=== PATIENT | female | born 1945 | race Caucasian/White ===

== ENCOUNTER 2020-07-30 16:09 | Inpatient (IN) | payer MEDICARE ==
[~2020-07-30] VITALS: Ht 154.9 cm; Wt 50.2 kg
[2020-07-30 20:30] VITALS: BP 99/79
[2020-07-30] MEDS ORDERED: ACETAMINOPHEN TAB 650MG DOSE (2X325MG) PO PRN (20:30)
--- NOTE | 2020-07-30 21:03 | HPEPDOC ---
General Date of Admission 07/30/20 Date of Service: Jul 30, 2020 Chief Complaint The patient is a 75-year-old female admitted with a reason for visit of Hypoxia. Source: Patient Exam Limitations: No limitations Severity: Moderate History of Present Illness Patient 75 years old female with past mental history of chronic kidney diseases, diastolic CHF, hypertension, hypothyroidism was transferred from [facility] with shortness of breath. Patient was admitted to [place] with sepsis secondary to pneumonia. Patient was found to have left lower lobe pneumonia with hypoxia, patient received treatment with ceftriaxone and azithromycin initially with some improvement. However on 07/27 patient developed increased shortness of breath, CT scan was done and showed a small left-sided pleural effusion with extensive parenchymal diseases in the left lower lobe with confluent left hilar mass around 4 cm consistent with postobstructive pneumonitis. Follow-up CT on 07/30/20 showed complete opacification of the left hemithorax secondary to left hilar mass causing complete collapse to the left lung with associated pleural effusion and volume loss. Underlying mediastinal and hilar adenopathy was noted as well,. 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 Levaquin started. Patient was transferred to [facility] for possible bronchoscopy. Case was discussed with Dr. Dixon. Also patient was found to have UTI, urine culture was positive for Trichomonas specious. Patient received a few doses with Flagyl 500 mg by mouth twice a day. Echo was done on 07/27 and showed ejection fraction of 55% with moderate pericardial effusion. Home Medications Scheduled Aspirin (Aspirin) 81 Mg Tab.chew, 81 MG PO DAILY, (Reported) Levothyroxine Sodium (Levothyroxine Sodium) 75 Mcg Tablet, 75 MCG PO QAM, (Reported) Vitamin B Complex/Folic Acid (B-Complex Tablet) 0.4 Mg Tablet, 1 TAB PO DAILY, (Reported) Allergies Coded Allergies: No Known Allergies (Verified Allergy, Unknown, 07/30/20) Past Medical History Medical History Hypertension, hyperlipidemia, hypothyroidism Social History * Smoker: current smoker Alcohol: Denies Drugs: denies A-FIB/CHADSVASC A-FIB History Current/History of A-Fib/PAF?: No Current PO Anticoag Therapy: No Review of Systems Constitutional: Denies: Chills, Fever Eyes: Denies: Pain ENT: Denies: Head Aches Skin: Denies: Rash, Lesions Pulmonary: Reports: Dyspnea Cardiovascular: Denies: Chest Pain, Palpitations Gastrointestinal: Denies: Nausea Genitourinary: Denies: Dysuria Hematologic: Denies: Bruising, Bleeding Excessively Endocrine: Denies: Polydipsia Musculoskeletal: Denies: Neck Pain Neurological: Denies: Weakness Psych: Reports: Mood Normal Physical Examination General Exam: Positive: Cooperative ENT Exam: Positive: Atraumatic Neck Exam: Positive: Supple; Negative: JVD Chest Exam: Positive: Diminished Heart Exam: Positive: Rate Normal Telemetry: Positive: No significant arrhythmia Abdomen Exam: Positive: Normal bowel sounds Extremity Exam: Negative: Clubbing, Cyanosis Skin Exam: Positive: Nl turgor and temperature Neuro Exam: Positive: Strength at 5/5 X4 ext Psych Exam: Positive: Mental status NL Vital Signs [id number] Assessment/Plan Patient 75 years old female with past mental history of chronic kidney diseases, diastolic CHF, hypertension, hypothyroidism was transferred from [facility] with shortness of breath. Patient was admitted to [place] with sepsis secondary to pneumonia. Patient was found to have left lower lobe pneumonia with hypoxia, patient received treatment with ceftriaxone and azithromycin initially with some improvement. However on 07/27 patient developed increased shortness of breath, CT scan was done and showed a small left-sided pleural effusion with ex tensive parenchymal diseases in the left lower lobe with confluent left hilar mass around 4 cm consistent with postobstructive pneumonitis. Follow-up CT on 07/30/20 showed complete opacification of the left hemithorax secondary to left hilar mass causing complete collapse to the left lung with associated pleural effusion and volume loss. Underlying mediastinal and hilar adenopathy was noted as well,. 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 Levaquin started. Patient was transferred to [facility] for possible bronchoscopy. Case was discussed with Dr. Dixon. Also patient was found to have UTI, urine culture was positive for Trichomonas specious. Patient received a few doses with Flagyl 500 mg by mouth twice a day. 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 Sputum culture positive for Xanthonomas maltophilia Levaquin IV CT chest showed a confluent left hilar mass consistent with postobstructive pneumonitis. Patient has a history of smoking for many years There is concern for malignancy Appreciate/agree with instrument adjuster consult (2) Hypothyroidism Status: Chronic Problem Text: Continue levothyroxine (3) Hypertension Status: Chronic Problem Text: Continue home cardioprotective medications (4) UTI (urinary tract infection) Status: Acute Problem Text: Patient was admitted with pyuria UA was positive for Trichomonas Metronidazole 2 g once (5) History of GI bleed Status: Acute Problem Text: During hospital stay in [facility] patient developed acute anemia. EGD was done patient was found to have a bleeding duodenal ulcer. Patient received treatment with IV PPI and Carafate Continue PPI and Carafate Plan / VTE VTE Prophylaxis Ordered?: Yes ERNST CORREIA DO Jul 30, 2020 21:03
[2020-07-30] MEDS ORDERED: metroNIDAZOLE (FLAGYL) 500MG TABLET PO ONE (21:15)
[2020-07-30] MEDS ORDERED: LEVO75TA4 PO (21:23)
[2020-07-30] MEDS ORDERED: B-COTAB10 PO (21:23)
[2020-07-30] MEDS ORDERED: ASPI81CH33 PO (21:23)
[2020-07-30 21:40] LABS: HEMATOCRIT 33.1 % (36.0-47.0); HEMOGLOBIN 10.7 g/dl (12.0-15.5); MEAN CORPUSCULAR HEMOGLOBIN 30.1 pg (27.0-33.0); MEAN CORPUSCULAR HGB CONC 32.3 g/dl (32.0-36.5); MEAN CORPUSCULAR VOLUME 93.2 fl (80.0-96.0); PLATELET COUNT, AUTOMATED 396 10^3/uL (150-450); RED BLOOD COUNT 3.55 10^6/uL (4.00-5.40)
[2020-07-30 22:17] LABS: ALBUMIN 1.7 GM/DL (3.2-5.2); ALT/SGPT 20 U/L (12-78); BILIRUBIN,TOTAL 0.2 MG/DL (0.2-1.0); BLOOD UREA NITROGEN 11 MG/DL (7-18); CALCIUM LEVEL 8.1 MG/DL (8.8-10.2); CARBON DIOXIDE LEVEL 21 MEQ/L (21-32); CHLORIDE LEVEL 105 MEQ/L (98-107); CREATININE FOR GFR 0.65 MG/DL (0.55-1.30); GLOMERULAR FILTRATION RATE > 60.0 (>39); GLUCOSE, FASTING 109 MG/DL (70-100); POTASSIUM SERUM 3.5 MEQ/L (3.5-5.1); SODIUM LEVEL 134 MEQ/L (136-145); TOTAL PROTEIN 4.9 GM/DL (6.4-8.2)
[2020-07-30] MEDS: HEPARIN SOD (PORCINE) 5000UNITS/ML 1ML VIAL/SYRINGE SC SCH (23:54)
[2020-07-30] MEDS: LevoFLOXacin IV 750 MG in IV 1 EA IV SCH (23:55)
[2020-07-31] VITALS: BP 102/52
[2020-07-31] MEDS: IPRATROPIUM 0.5MG/ALBUTEROL 2.5MG INH SOL UD 3ML (DUONEB) NEB SCH ×4 (02:00→20:03)
[2020-07-31] MEDS ORDERED: ALBUTEROL SULFATE 2.5 MG/0.5 ML INH NEB SOLN NEB PRN (02:00)
[2020-07-31 04:00] VITALS: BP 100/64
[2020-07-31 06:01] LABS: HEMATOCRIT 33.9 % (36.0-47.0); HEMOGLOBIN 10.6 g/dl (12.0-15.5); MEAN CORPUSCULAR HEMOGLOBIN 30.8 pg (27.0-33.0); MEAN CORPUSCULAR HGB CONC 31.3 g/dl (32.0-36.5); MEAN CORPUSCULAR VOLUME 98.5 fl (80.0-96.0); PLATELET COUNT, AUTOMATED 358 10^3/uL (150-450); RED BLOOD COUNT 3.44 10^6/uL (4.00-5.40); WHITE BLOOD COUNT 12.9 10^3/uL (4.0-10.0)
[2020-07-31 06:42] LABS: ALBUMIN 1.4 GM/DL (3.2-5.2); ALT/SGPT 16 U/L (12-78); BILIRUBIN,TOTAL 0.2 MG/DL (0.2-1.0); BLOOD UREA NITROGEN 10 MG/DL (7-18); CARBON DIOXIDE LEVEL 17 MEQ/L (21-32); CHLORIDE LEVEL 106 MEQ/L (98-107); CREATININE FOR GFR 0.71 MG/DL (0.55-1.30); GLOMERULAR FILTRATION RATE > 60.0 (>39); GLUCOSE, FASTING 79 MG/DL (70-100); MAGNESIUM LEVEL 1.7 MG/DL (1.8-2.4); POTASSIUM SERUM 3.2 MEQ/L (3.5-5.1); SODIUM LEVEL 133 MEQ/L (136-145); TOTAL PROTEIN 5.1 GM/DL (6.4-8.2)
[2020-07-31] MEDS: LEVOTHYROXINE 75MCG TABLET (0.075MG) PO SCH (06:42)
[2020-07-31 08:00] VITALS: BP 92/58
[2020-07-31] MEDS: SUCRALFATE 1 GM TAB PO SCH ×2 (09:10→17:43)
[2020-07-31] MEDS: OMEPRAZOLE 20 MG CAP PO SCH ×2 (09:10→21:51)
[2020-07-31] MEDS: predniSONE 20 MG TAB PO SCH (09:11)
[2020-07-31] MEDS: ASPIRIN 81 MG CHEW TABLET PO SCH (09:11)
[2020-07-31] MEDS: HEPARIN SOD (PORCINE) 5000UNITS/ML 1ML VIAL/SYRINGE SC SCH ×2 (09:11→21:52)
--- NOTE | 2020-07-31 10:53 | IPNPDOC ---
Text Note Date of Service The patient was seen on 07/31/20. NOTE Subjective: No any acute events overnight. Patient denied fever, chills, nausea, vomiting, diarrhea or dysuria. Objective: GENERAL APPEARANCE: NAD HEENT: no scleral icterus, no JVD, EOMI CARDIOVASCULAR: S1S2 LUNGS: Diminished lung sounds bilaterally ABDOMEN: soft & not tender w palpitation MUSCULOSKELETAL: no cyanosis, no swelling INTEGUMENT: no generalized palor NEUROLOGICAL: cranial nerve function from 2-12 intact intact, follows commands, speech not dysarthric Assessment/Plan Patient 75 years old female with past mental history of chronic kidney diseases, diastolic CHF, hypertension, hypothyroidism was transferred from [facility] with shortness of breath. Patient was admitted to [place] with sepsis secondary to pneumonia. Patient was found to have left lower lobe pneumonia with hypoxia, patient received treatment with ceftriaxone and azithromycin initially with some improvement. However on 07/27 patient developed increased shortness of breath, CT scan was done and showed a small left-sided pleural effusion with extensive parenchymal diseases in the left lower lobe with confluent left hilar mass around 4 cm consistent with postobstructive pneumonitis. Follow-up CT on 07/30/20 showed complete opacification of the left hemithorax secondary to left hilar mass causing complete collapse to the left lung with associated pleural effusion and volume loss. Underlying mediastinal and hilar adenopathy was noted as well,. 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 Levaquin started. Patient was transferred to [facility] for possible bronchoscopy. Case was discussed with Dr. Dixon. Also patient was found to have UTI, urine culture was positive for Trichomonas specious. Patient received a few doses with Flagyl 500 mg by mouth twice a day. 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 Sputum culture positive for Xanthonomas maltophilia Continue Levaquin IV CT chest showed a confluent left hilar mass consistent with postobstructive pneumonitis. Patient has a history of smoking for many years There is concern for malignancy Appreciate/agree with data analyst etl developer consult (2) Hypothyroidism Continue levothyroxine (3) Hypertension Continue home cardioprotective medications (4) UTI (urinary tract infection) Patient was admitted with pyuria UA was positive for Trichomonas Metronidazole 2 g once (5) History of GI bleed During hospital stay in [facility] patient developed acute anemia. EGD was done patient was found to have a bleeding duodenal ulcer. Patient received treatment with IV PPI and Carafate Continue PPI and Carafate Hemoglobin stable VS,Fishbone, I+O VS, Fishbone, I+O Laboratory Tests 07/30/20 21:29 07/31/20 05:24 Vital Signs Date Time Temp Pulse Resp B/P (MAP) Pulse Ox O2 Delivery O2 Flow Rate FiO2 07/31/20 08:00 97.6 84 17 92/58 (69) 93 Nasal Cannula 2.0 I&O- Last 24 Hours up to 6 AM 07/31/20 06:00 Intake Total 0 ml Output Total 250 ml Balance -250 ml ERNST CORREIA DO Jul 31, 2020 10:53
[2020-07-31] MEDS ORDERED: POTASSIUM CHLORIDE 10 MEQ SR TABLET PO ONE (11:00)
[2020-07-31] MEDS ORDERED: ISOVUE-370 76% 100ML VIAL As Ordered ONE (11:03)
--- NOTE | 2020-07-31 11:49 | REP ---
INDICATION: LL PNA COMPARISON: None TECHNIQUE: Axial contrast enhanced images from the thoracic inlet to the upper abdomen with coronal and sagittal reformations using 75 ml Isovue 370 intravenous contrast material. This CT examination was performed using the following dose reduction techniques: Automated exposure control, adjustment of mA and/or kv according to the patient's size, and use of iterative reconstruction technique. FINDINGS: There is obstruction at the level of the left main bronchus with suspected perihilar mass and postobstructive collapse to the left lung with a moderate pleural effusion and mediastinal adenopathy. As example, pre-vascular lymph nodes measure up to 2.2 cm. Right lung demonstrates underlying chronic fibrosis and emphysematous disease with scattered ground-glass opacities and small right pleural effusion. Atherosclerotic changes to the thoracic aorta noted without aneurysm or dissection. Atherosclerotic changes to the coronary arteries are identified without cardiomegaly or pericardial effusion. Musculoskeletal structures demonstrate age-related degenerative changes and chronic vertebral plana at T7. IMPRESSION: Suspected left hilar mass causing obstructive collapse to the left lung with moderate left effusion and associated mediastinal adenopathy. <Electronically signed by Roman Gilman > 07/31/20 [id number]
[2020-07-31 12:00] VITALS: BP 90/58
--- NOTE | 2020-07-31 12:08 | CR ---
CONSULTATION DATE: 07/31/2020 ATTENDING PHYSICIAN: Dr. Parson. REASON FOR CONSULTATION: Abnormal CT scan. HISTORY OF PRESENT ILLNESS: Ms. Rodas is a delightfully pleasant 75-year-old female who smoked much of her adult life. She says other than some hypertension and hypothyroidism she has been otherwise healthy and has never been hospitalized for anything other than childbirth. She recently was felt to have a pneumonia. Further workup revealed that she had a mass. She then had whiteout of her left chest. She was transferred here for further care and consideration for bronchoscopy. Unfortunately at the moment, I have no capabilities to view the discs that were sent with her. She says she is feeling fairly comfortable. Denies changes in appetite. Denies fevers or chest pain. Says she has been coughing up some sputum but really has not looked at it to be honest. No other systemic complaints. ALLERGIES: Listed as none. CURRENT MEDICATIONS: 1. Prilosec. 2. Prednisone. 3. Aspirin. 4. Carafate. 5. Synthroid. 6. Albuterol nebs. 7. Levaquin. 8. Subcu heparin. 9. Acetaminophen. PAST MEDICAL HISTORY: 1. Hypertension. 2. Hypothyroidism. SOCIAL HISTORY: Lives at home with family nearby. Continues to smoke. No obvious alcohol. FAMILY HISTORY: Noncontributory from a pulmonary standpoint. REVIEW OF SYSTEMS: As per the HPI. Otherwise constitutional negative for any recent fevers or chills. HEENT unremarkable for double vision. Pulmonary as per HPI. Cardiac unremarkable for angina. GI unremarkable for nausea or vomiting. unremarkable for dysuria or urgency. Neurologic unremarkable for seizure or strokes. Endocrine significant for hypothyroidism. Hematological unremarkable for bruising or bleeding. Dermatologic unremarkable for any rashes or psoriasis. Musculoskeletal unremarkable for any new arthralgias or myalgias. Immunologic and allergic unremarkable. Psychiatric unremarkable. PHYSICAL EXAMINATION: General: Pleasant, well-nourished, well-developed female who appears her stated age. Vital signs: Blood pressure 92/58, heart rate in the 80s with frequent ectopy, respiratory rate around 16-18 and unlabored, currently saturating 91-93% on 2 liters nasal cannula. HEENT: Otherwise generally normocephalic/atraumatic. Pupils reactive. Neck is supple, consistent with age. Trachea is in the midline. Membranes are moist. Airway is class II. Chest: Mild kyphosis. There is dullness to percussion over the entire left hemithorax. There is some egophony at the left apex posteriorly but absence of breath sounds over the lower two-thirds of the left hemithorax. Right chest is generally clear with some occasionally rhonchus and a faint end-expiratory squeak especially in the mid zone. Cardiac: Distant with frequent ectopy. Peripheral pulses palpable. No obvious edema. Abdomen: Soft, nontender with active bowel sounds. No __, ischemia or mass. Extremities: No cyanosis or clubbing. Neurologic: She is awake, alert, appropriate. Psychiatric: General good mood and affect. . IMAGING: Currently imaging is unavailable to me. LABORATORY DATA: Available laboratories: White blood cell count 12.9, hemoglobin 10.6, platelet count 358,000. Sodium 133, potassium 3.2, chloride 106, CO2 17, BUN 10, creatinine 0.71, glucose 79. IMPRESSION: 1. Abnormal chest x-ray and CT scan with reported mass with adenopathy and progressive atelectasis. 2. Longstanding tobacco abuse, cannot rule out significant underlying obstructive disease. 3. Nicotine abuse. 4. Reported pericardial effusion, chronic. RECOMMENDATIONS: At this point, I need to view her images. I am told that I will have access to a disc drive here shortly. If not, we will have to repeat her scan. I may be able to have her disc loaded into the PACS system in Radiology as well for viewing. I discussed with her the need most likely for fiberoptic bronchoscopy, but in the interim, we will get sputum for cytologies and increase her pulmonary toilet. It may be conceivable that she had progression due to mucus plugging, but I will know better once I see the images. I am in agreement with her other medications. Risks and benefits of bronchoscopy were discussed, and likely I will do her in the main OR. Will proceed as outlined above. Further recommendation will be in the progress record as new information becomes available. YENIFER
[2020-07-31 16:00] VITALS: BP 94/52
[2020-07-31] MEDS ORDERED: PILL CUTTER 1 EACH XX PRN (16:00)
[2020-07-31] MEDS: MAGNESIUM GLUCONATE 500 MG TAB PO SCH (17:43)
[2020-07-31 20:00] VITALS: BP 108/60
[2020-07-31] MEDS: LevoFLOXacin IV 750 MG in IV 1 EA IV SCH (21:52)
[2020-08-01] VITALS: BP 113/59
[2020-08-01] MEDS: IPRATROPIUM 0.5MG/ALBUTEROL 2.5MG INH SOL UD 3ML (DUONEB) NEB SCH ×4 (02:00→19:54)
[2020-08-01 04:00] VITALS: BP 105/58
[2020-08-01] MEDS: LEVOTHYROXINE 75MCG TABLET (0.075MG) PO SCH (05:02)
[2020-08-01 05:39] LABS: BASO % 0.1 % (0.0-1.0); EOS % 0.1 % (0.0-3.0); HEMATOCRIT 27.8 % (36.0-47.0); HEMOGLOBIN 9.5 g/dl (12.0-15.5); LYMPH # 0.7 10^3/uL (1.5-5.0); LYMPH % 3.7 % (24.0-44.0); MEAN CORPUSCULAR HEMOGLOBIN 31.5 pg (27.0-33.0); MEAN CORPUSCULAR HGB CONC 34.2 g/dl (32.0-36.5); MEAN CORPUSCULAR VOLUME 92.1 fl (80.0-96.0); MONO # 0.8 10^3/uL (0.0-0.8); MONO % 4.4 % (0.0-5.0); NEUTROPHILS % 90.9 % (36.0-66.0); PLATELET COUNT, AUTOMATED 433 10^3/uL (150-450); RED BLOOD COUNT 3.02 10^6/uL (4.00-5.40); WHITE BLOOD COUNT 17.6 10^3/uL (4.0-10.0)
[2020-08-01 06:00] LABS: BLOOD UREA NITROGEN 7 MG/DL (7-18); CALCIUM LEVEL 7.9 MG/DL (8.8-10.2); CARBON DIOXIDE LEVEL 22 MEQ/L (21-32); CHLORIDE LEVEL 106 MEQ/L (98-107); CREATININE FOR GFR 0.78 MG/DL (0.55-1.30); GLOMERULAR FILTRATION RATE > 60.0 (>39); GLUCOSE, FASTING 86 MG/DL (70-100); MAGNESIUM LEVEL 1.5 MG/DL (1.8-2.4); POTASSIUM SERUM 3.5 MEQ/L (3.5-5.1); SODIUM LEVEL 136 MEQ/L (136-145)
[2020-08-01 08:00] VITALS: BP 109/56
[2020-08-01] MEDS: predniSONE 20 MG TAB PO SCH (09:06)
[2020-08-01] MEDS: HEPARIN SOD (PORCINE) 5000UNITS/ML 1ML VIAL/SYRINGE SC SCH ×2 (09:06→21:11)
[2020-08-01] MEDS: SUCRALFATE 1 GM TAB PO SCH ×2 (09:06→17:39)
[2020-08-01] MEDS: ASPIRIN 81 MG CHEW TABLET PO SCH (09:07)
[2020-08-01] MEDS: OMEPRAZOLE 20 MG CAP PO SCH ×2 (09:07→21:11)
[2020-08-01] MEDS: MAGNESIUM GLUCONATE 500 MG TAB PO SCH (09:07)
--- NOTE | 2020-08-01 11:09 | IPN ---
PULMONARY PROGRESS NOTE DATE: 08/01/2020 SUBJECTIVE: I attended to Savannah Rodas here in the Progressive Care Unit. Patient was examined, chart reviewed and I spoke with the nurses at the bedside. Reviewed her CT scan and discussed it with her. She has complete cut off of the left main stem bronchus and very significant hilar mediastinal adenopathy. Risks and benefits of bronchoscopy were discussed with her and informed consent was obtained today for a procedure planned for tomorrow under general anesthesia. T-max overnight 97.9, blood pressure 105-113, heart rate in the 80s with a sinus mechanism, respiratory rate in the teens without accessory muscle use, currently saturating 88-90% on 2 liters nasal cannula. White blood cell count 17.6, hemoglobin 9.5, platelet count 433,000, 91% segmented neutrophils, no bands. Sodium 136, K 3.5, chloride 6, CO2 22, BUN 7, creatinine 0.78. Coags are pending. PHYSICAL EXAM: On exam she is awake, alert and appropriate. HEENT: Pupils react, sclerae clear. Neck: Trachea is midline. Chest: Shows absence of breath sounds over almost the entire left hemithorax except for some egophony at the apex. Right chest is clear. Cardiac: Regular with no gallop. Peripheral pulses palpable. No extremity edema. Abdomen: Soft, nontender with active bowel sounds, no organomegaly or masses. Extremities: Without cyanosis or clubbing. Neurologically: She is awake, alert and appropriate. Psychiatric: Normal mood and affect. IMAGING: CT scan as outlined above. IMPRESSION: 1. Abnormal CT scan with obstructing lesions in the left chest. 2. Long standing tobacco history with suspected obstructive lung disease. 3. Hypoxemia on the basis of the above. RECOMMENDATIONS AND PLAN: At this point we will proceed as planned with bronchoscopy tomorrow. Risks and benefits were discussed and consent was obtained and signed. At this point we will check coags although that will not preclude us proceeding unless they are markedly abnromal which I do not expect. We await the outcome of the above. In the interim we will continue our current therapy for post-obstructive changes. We await the outcome of the above.
[2020-08-01 12:00] VITALS: BP 102/56
[2020-08-01 16:00] VITALS: BP 107/63
--- NOTE | 2020-08-01 16:50 | IPNPDOC ---
Date Seen The patient was seen on 08/01/20. Progress Note SUBJECTIVE: WBC worsened this AM, on levofloxacin. Bronchoscopy planned for AM 08/01/20, pulmonary consulted. No any acute events overnight. Patient denied fever, chills, nausea, vomiting, diarrhea or dysuria. OBJECTIVE: PHYSICAL EXAM: VS: Please see below GENERAL APPEARANCE: NAD HEENT: no scleral icterus, no JVD, EOMI CARDIOVASCULAR: S1S2 LUNGS: Diminished lung sounds bilaterally ABDOMEN: soft & not tender w palpitation MUSCULOSKELETAL: no cyanosis, no swelling INTEGUMENT: no generalized palor NEUROLOGICAL: cranial nerve function from 2-12 intact intact, follows commands, speech not dysarthric LABS: Please see below MICRO: BCx pending IMAGING: CT chest: Suspected left hilar mass causing obstructive collapse to the left lung with moderate left effusion and associated mediastinal adenopathy. ASSESSMENT: Patient 75 years old female with past mental history of chronic kidney diseases, diastolic CHF, hypertension, hypothyroidism was transferred from [facility] with shortness of breath. Patient was admitted to [place] with sepsis secondary to pneumonia. Patient was found to have left lower lobe pneumonia with hypoxia, patient received treatment with ceftriaxone and azithromycin initially with some improvement. However on 07/27 patient developed increased shortness of breath, CT scan was done and showed a small left-sided pleural effusion with extensive parenchymal diseases in the left lower lobe with confluent left hilar mass around 4 cm consistent with postobstructive pneumonitis. Follow-up CT on 07/30/20 showed complete opacification of the left hemithorax secondary to left hilar mass causing complete collapse to the left lung with associated pleural effusion and volume loss. Underlying mediastinal and hilar adenopathy was noted as well. 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 Levaquin started. Patient was transferred to [facility] for bronchoscopy. Case was discussed with Dr. Dixon. Also patient was found to have UTI, urine culture was positive for Trichomonas specious. Patient received a few doses with Flagyl 500 mg by mouth twice a day. Echo was done on 07/27 and showed ejection fraction of 55% with moderate pericardial effusion. 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 LL pneumonia with collapsed lung. -Sputum culture positive for Xanthonomas maltophilia -WBC worsened to 17K despite tx with levofloxacin -Currently on 2 L NC but desaturates to 80's with ambulation. RA is baseline -Pulmonology consulted -Bronchoscopy in AM on 08/02/20 -C/w levofloxacin for now, if WBC worsens, broaden with cefepime (2) Hypothyroidism -C/w levothyroxine (3) Hypertension -C/w cardioprotective medications (4) Trichomonas UTI -WBC worsened -S/p flagyl treatment (5) History of GI bleed 2/2 to duodenal ulcer -During hospital stay in [facility] patient developed acute anemia. -EGD was done patient was found to have a bleeding duodenal ulcer. -Continue PPI and Carafate -Hemoglobin stable -Daily CBC (6) GI px -PPI (7) DVT px -Recent GI bleed -HOlding AC, SCD and teds DISPOSITION: Bronchoscopy in AM. PT/OT. Plan is discharge home when medically improved. VS, I&O, 24H, Fishbone Vital Signs/I&O Vital Signs Date Time Temp Pulse Resp B/P (MAP) Pulse Ox O2 Delivery O2 Flow Rate FiO2 08/01/20 12:00 96.6 83 18 102/56 (71) 94 Nasal Cannula 2.0 I&O- Last 24 Hours up to 6 AM 08/01/20 06:00 Intake Total 1050 ml Output Total 0 ml Balance 1050 ml Laboratory Data 24H LABS Laboratory Tests 2 08/01/20 05:20: Immature Granulocyte % (Auto) 0.8, Neutrophils (%) (Auto) 90.9H, Lymphocytes (%) (Auto) 3.7L, Monocytes (%) (Auto) 4.4, Eosinophils (%) (Auto) 0.1, Basophils (%) (Auto) 0.1, Neutrophils # (Auto) 16.0H, Lymphocytes # (Auto) 0.7L, Monocytes # (Auto) 0.8, Eosinophils # (Auto) 0.0, Basophils # (Auto) 0.0, Nucleated Red Blood Cells % (auto) 0.0, Anion Gap 8, Glomerular Filtration Rate > 60.0, Calcium Level 7.9L, Magnesium Level 1.5L 08/01/20 10:01: Methicillin-Resist S.aureus DNA PCR NOT DETECTED 08/01/20 10:56: Coronavirus (COVID-19)(PCR) NEGATIVE CBC/BMP Laboratory Tests 08/01/20 05:20 Microbiology Microbiology 08/01/20 Blood Culture, Received Pending 08/01/20 Blood Culture, Received Pending Current Medications Current Medications Medications (Trade) Dose Ordered Sig/Tato Route PRN Reason Start Time Stop Time Status Last Admin Dose Admin Acetaminophen (Tylenol Tab) 650 mg Q4H PRN PO PAIN OR FEVER 07/30/20 20:30 Albuterol Sulfate (Proventil Neb) 2.5 mg Q4HP PRN NEB SHORTNESS OF BREATH 07/31/20 02:00 Albuterol/ Ipratropium (Duoneb (Ipr 0.5mg/Alb 2.5mg)) 3 ml RQ6H NEB 07/31/20 02:00 08/01/20 14:53 Aspirin (Aspirin Chewable) 81 mg DAILY PO 07/31/20 09:00 08/01/20 09:07 Heparin Sodium (Porcine) (Heparin) 5,000 units Q12H SC 07/30/20 21:00 08/01/20 09:06 Home Med (Med Rec Complete!) ASDIRECTED XX 07/30/20 21:30 07/30/20 22:04 DC Levofloxacin 750 mg/IV Miscellaneous Supplies 150 ml @ 100 mls/hr Q24H IV 07/30/20 22:00 07/31/20 21:52 Levothyroxine Sodium (Synthroid) 75 mcg DAILY@0600 PO 07/31/20 06:00 08/01/20 05:02 Magnesium Gluconate (Magnesium Gluconate) 250 mg DAILY PO 07/31/20 16:00 08/01/20 09:07 Omeprazole (PriLOSEC) 40 mg BID PO 07/31/20 09:00 08/01/20 09:07 Prednisone (Deltasone) 40 mg DAILY PO 07/31/20 09:00 08/01/20 09:06 Sucralfate (Carafate) 1 gm BID@0800,1800 PO 07/31/20 08:00 08/01/20 09:06 Allergies Coded Allergies: No Known Allergies (Verified Allergy, Unknown, 07/30/20) Nevaeh Sweeney MD Aug 01, 2020 16:50
[2020-08-01] MEDS: CEFEPIME HCL 2 GM in D5W MINI-BAG PLUS 50 ML IV SCH (17:39)
[2020-08-01 20:00] VITALS: BP 105/51
[2020-08-01] MEDS: LevoFLOXacin IV 750 MG in IV 1 EA IV SCH (21:11)
[2020-08-02] VITALS (10 sets, daily range): BP systolic 97–137; BP diastolic 53–59
[2020-08-02] MEDS: IPRATROPIUM 0.5MG/ALBUTEROL 2.5MG INH SOL UD 3ML (DUONEB) NEB SCH ×4 (01:51→19:18)
[2020-08-02 05:16] LABS: BASO % 0.1 % (0.0-1.0); HEMATOCRIT 28.9 % (36.0-47.0); HEMOGLOBIN 9.2 g/dl (12.0-15.5); LYMPH # 0.7 10^3/uL (1.5-5.0); LYMPH % 5.3 % (24.0-44.0); MEAN CORPUSCULAR HEMOGLOBIN 30.3 pg (27.0-33.0); MEAN CORPUSCULAR HGB CONC 31.8 g/dl (32.0-36.5); MEAN CORPUSCULAR VOLUME 95.1 fl (80.0-96.0); MONO # 0.7 10^3/uL (0.0-0.8); MONO % 5.1 % (0.0-5.0); NEUTROPHILS % 88.5 % (36.0-66.0); PLATELET COUNT, AUTOMATED 410 10^3/uL (150-450); RED BLOOD COUNT 3.04 10^6/uL (4.00-5.40); WHITE BLOOD COUNT 13.6 10^3/uL (4.0-10.0)
[2020-08-02 05:41] LABS: BLOOD UREA NITROGEN 5 MG/DL (7-18); CALCIUM LEVEL 8.1 MG/DL (8.8-10.2); CARBON DIOXIDE LEVEL 22 MEQ/L (21-32); CHLORIDE LEVEL 104 MEQ/L (98-107); CREATININE FOR GFR 0.77 MG/DL (0.55-1.30); GLOMERULAR FILTRATION RATE > 60.0 (>39); GLUCOSE, FASTING 85 MG/DL (70-100); MAGNESIUM LEVEL 1.5 MG/DL (1.8-2.4); POTASSIUM SERUM 3.5 MEQ/L (3.5-5.1); SODIUM LEVEL 134 MEQ/L (136-145)
[2020-08-02] MEDS: CEFEPIME HCL 2 GM in D5W MINI-BAG PLUS 50 ML IV SCH ×2 (06:08→18:37)
[2020-08-02] MEDS: LEVOTHYROXINE 75MCG TABLET (0.075MG) PO SCH (06:08)
[2020-08-02] MEDS: HEPARIN SOD (PORCINE) 5000UNITS/ML 1ML VIAL/SYRINGE SC SCH ×2 (09:00→21:30)
[2020-08-02] MEDS ORDERED: LIDOCAINE 1% MDV 20ML VIAL As Ordered ONE (09:46)
[2020-08-02] MEDS ORDERED: THROMBIN SOLN 5,000 UNITS VIAL As Ordered ONE ×2 (09:46→11:08)
[2020-08-02] MEDS ORDERED: CETACAINE SPRAY 5GM As Ordered ONE (09:46)
[2020-08-02] MEDS ORDERED: ACETYLCYSTEINE 20% 30 ML VIAL As Ordered ONE (09:47)
[2020-08-02] MEDS ORDERED: LIDOCAINE VISCOUS 2% SOLN 15ML UDC As Ordered ONE (09:47)
[2020-08-02] MEDS ORDERED: PHENYLEPHRINE 0.5% NASAL SPRAY 15 ML As Ordered ONE (09:47)
[2020-08-02] MEDS ORDERED: EPINEPHrine 1MG/10ML SYRINGE 1.5IN As Ordered ONE (09:47)
[2020-08-02] MEDS ORDERED: MIDAZOLAM INJ 2MG/2ML VIAL (J2250 PER 1MG) As Ordered ONE (10:54)
[2020-08-02] MEDS ORDERED: ROCURONIUM BROMIDE 50 MG/5 ML VIAL As Ordered ONE (10:54)
[2020-08-02] MEDS ORDERED: SUGAMMADEX SODIUM 500 MG/5 ML VIAL (BRIDION) As Ordered ONE (10:54)
[2020-08-02] MEDS ORDERED: PHENYLephrine HCL 500 MCG/5 ML (100MCG/ML) SYRINGE (J2370) As Ordered ONE (10:54)
[2020-08-02] MEDS ORDERED: LIDOCAINE 2% 100MG/5ML SDV (FOR ANES.) As Ordered ONE (10:54)
[2020-08-02] MEDS ORDERED: fentaNYL 100 MCG/2 ML INJECTION (J3010) As Ordered ONE (10:54)
[2020-08-02] MEDS ORDERED: propofoL 200 MG/20 ML VIAL As Ordered ONE (10:54)
[2020-08-02] MEDS ORDERED: ONDANSETRON 4MG/2ML VIAL As Ordered ONE (10:55)
[2020-08-02] MEDS ORDERED: dexameTHASONE 4 MG/ML 1ML VIAL (J1100 PER 1MG) As Ordered ONE (10:55)
[2020-08-02] MEDS ORDERED: ONDANSETRON 4MG/2ML VIAL IV PRN (11:45)
[2020-08-02] MEDS ORDERED: METOCLOPRAMIDE INJ 10MG/2ML VIAL (J2765 PER 1) IV PRN (11:45)
[2020-08-02] MEDS ORDERED: fentaNYL 100 MCG/2 ML INJECTION (J3010) IV PRN (11:45)
[2020-08-02] MEDS ORDERED: LR 1,000 ML IV SCH (11:45)
--- NOTE | 2020-08-02 12:32 | RO ---
OPERATIVE NOTE DATE OF OPERATION: 08/02/2020 PROCEDURE: Fiberoptic bronchoscopy with washes, brushes, biopsies, fine needle aspirate, and photos. SURGEON: SUSAN CERON M.D. PREOPERATIVE DIAGNOSIS: Left lung mass with mediastinal adenopathy. POSTOPERATIVE DIAGNOSIS: Left lung mass with mediastinal adenopathy. CONSENT: Informed consent was obtained prior to the procedure. ANESTHESIA: General. OPERATIVE FINDINGS: 1. Broadening of the kaiser. 2. 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 DESCRIPTION OF PROCEDURE: After the patient was identified and general anesthesia was employed, the fiberoptic bronchoscope was easily passed via the existing endotracheal tube. The tube was found to be in good position. The kaiser, although mildly sharp and anteriorly, it was broadened posteriorly and did not move well. The left mainstem was completely obstructed by secretions. These were suctioned clear and diffuse circumferential submucosal infiltration of tumor was seen. Attention was then turned to the right. The right mainstem, upper, middle, and lower lobes were easily identified and widely patent. Changes of chronic bronchitis were noted. No focal endobronchial mucosal abnormalities on the right were identified. Attention was turned to the left. Multiple biopsies were taken. Some bleeding was encountered. Initial biopsies only showed necrotic debris, so multiple deeper biopsies were taken. These were preserved for permanent section. Using a 20-gauge ROMERO needle, multiple passes were made through the kaiser into the subcarinal node. Again, on the first pass, multiple inflammatory cells were identified, but multiple more passes were then made and preserved for cell block. Cytology brush was then passed into the distal left mainstem. Some mild bleeding was encountered that was easily controlled with saline lavage and topical thrombin, 5000 units x2. When adequate hemostasis was assured, the scope was withdrawn and the procedure was terminated. Care was then turned over to anesthesia for reversal of anesthesia and extubation. No immediate complications identified. Pathology is pending at the time of this dictation.
[2020-08-02] MEDS: MAGNESIUM GLUCONATE 500 MG TAB PO SCH (13:24)
[2020-08-02] MEDS: predniSONE 20 MG TAB PO SCH (13:24)
[2020-08-02] MEDS: SUCRALFATE 1 GM TAB PO SCH ×2 (13:25→18:37)
[2020-08-02] MEDS: ASPIRIN 81 MG CHEW TABLET PO SCH (13:25)
[2020-08-02] MEDS: OMEPRAZOLE 20 MG CAP PO SCH ×2 (13:26→21:30)
--- NOTE | 2020-08-02 15:16 | IPNPDOC ---
Date Seen The patient was seen on 08/02/20. Progress Note SUBJECTIVE: WBC improved to 13.6 on dual abx coverage. S/p fiberoptic bronchoscopy with washes, brushes, biopsies, FNA and photos done by Dr. Dixon. complete obstruction of distal left mainstem by submucosal infiltration of tumor seen. Cytology was also sent to path. Remains on 4 L NC since procedure. Patient denied fever, chills, nausea, vomiting, diarrhea or dysuria. OBJECTIVE: PHYSICAL EXAM: VS: Please see below GENERAL APPEARANCE: NAD, resting in bed, AAOx 3 HEENT: no scleral icterus, no JVD, EOMI, nasal cannula in place CARDIOVASCULAR: S1S2, no M/R/G LUNGS: Diminished lung sounds bilaterally, occasional rhonchi, no W/Rales ABDOMEN: soft & not tender w palpitation, BS + in 4 quad, no organomegaly MUSCULOSKELETAL: no cyanosis, no swelling INTEGUMENT: no generalized palor NEUROLOGICAL: cranial nerve function from 2-12 intact intact, follows commands, speech not dysarthric LABS: Please see below MICRO: BCx NG to date Bronchial washing GS: mod WBC Bronchial washing cx: pending Bronchial washings fungal studies: pending PATHOLOGY: FNA, cytology pending from bronchoscopy IMAGING: CT chest: Suspected left hilar mass causing obstructive collapse to the left lung with moderate left effusion and associated mediastinal adenopathy. ASSESSMENT: Patient 75 years old female with past mental history of chronic kidney diseases, diastolic CHF, hypertension, hypothyroidism was transferred from [facility] with shortness of breath. Patient was admitted to [place] with sepsis secondary to pneumonia. Patient was found to have left lower lobe pneumonia with hypoxia, patient received treatment with ceftriaxone and azithromycin initially with some improvement. However on 07/27 patient developed increased shortness of breath, CT scan was done and showed a small left-sided pleural effusion with extensive parenchymal diseases in the left lower lobe with confluent left hilar mass around 4 cm consistent with postobstructive pneumonitis. Follow-up CT on 07/30/20 showed complete opacification of the left hemithorax secondary to left hilar mass causing complete collapse to the left lung with associated pleural effusion and volume loss. Underlying mediastinal and hilar adenopathy was noted as well. 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 Levaquin started. Patient was transferred to [facility] for bronchoscopy. Case was discussed with Dr. Dixon. Also patient was found to have UTI, urine culture was positive for Trichomonas specious. Patient received a few doses with Flagyl 500 mg by mouth twice a day. Echo was done on 07/27 and showed ejection fraction of 55% with moderate pericardial effusion. 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 LL pneumonia with collapsed lung. -Sputum culture positive for Xanthonomas maltophilia -WBC improving, afebrile -Currently on 4 L NC post bronch. 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 -EGD was done patient was found to have a bleeding duodenal ulcer. -Continue PPI and Carafate -Hemoglobin stable -Daily CBC GI px -PPI DVT px -Recent GI bleed -HOlding AC, SCD and teds DISPOSITION: PT/OT. Plan is discharge home when medically improved. VS, I&O, 24H, Fishbone Vital Signs/I&O Vital Signs Date Time Temp Pulse Resp B/P (MAP) Pulse Ox O2 Delivery O2 Flow Rate FiO2 08/02/20 14:10 96.7 105 18 125/56 (79) 91 Nasal Cannula 4.0 I&O- Last 24 Hours up to 6 AM 08/02/20 06:00 Intake Total 870 ml Output Total 800 ml Balance 70 ml Laboratory Data 24H LABS Laboratory Tests 2 08/02/20 04:43: Immature Granulocyte % (Auto) 1.0, Neutrophils (%) (Auto) 88.5H, Lymphocytes (%) (Auto) 5.3L, Monocytes (%) (Auto) 5.1H, Eosinophils (%) (Auto) 0.0, Basophils (%) (Auto) 0.1, Neutrophils # (Auto) 12.0H, Lymphocytes # (Auto) 0.7L, Monocytes # (Auto) 0.7, Eosinophils # (Auto) 0.0, Basophils # (Auto) 0.0, Nucleated Red Blood Cells % (auto) 0.0, Anion Gap 8, Glomerular Filtration Rate > 60.0, Ca lcium Level 8.1L, Magnesium Level 1.5L CBC/BMP Laboratory Tests 08/02/20 04:43 Microbiology Microbiology 08/02/20 Acid Fast Stain, Received Pending 08/02/20 Mycobacterial Culture, Received Pending 08/02/20 Fungal Smear, Received Pending 08/02/20 Fungal Culture, Received Pending 08/02/20 Gram Stain - Final, Resulted 08/02/20 Bronchial Aspirate Culture, Resulted Pending 08/01/20 Blood Culture - Preliminary, Resulted No growth after 24 hours . All specim... 08/01/20 Blood Culture - Preliminary, Resulted No growth after 24 hours . All specim... Current Medications Current Medications Medications (Trade) Dose Ordered Sig/Tato Route PRN Reason Start Time Stop Time Status Last Admin Dose Admin Acetaminophen (Tylenol Tab) 650 mg Q4H PRN PO PAIN OR FEVER 07/30/20 20:30 Albuterol Sulfate (Proventil Neb) 2.5 mg Q4HP PRN NEB SHORTNESS OF BREATH 07/31/20 02:00 Albuterol/ Ipratropium (Duoneb (Ipr 0.5mg/Alb 2.5mg)) 3 ml RQ6H NEB 07/31/20 02:00 08/02/20 13:35 Aspirin (Aspirin Chewable) 81 mg DAILY PO 07/31/20 09:00 08/02/20 13:25 Cefepime HCl 2 gm/ Dextrose 50 ml @ 100 mls/hr Q12H IV 08/01/20 18:00 08/02/20 06:08 Fentanyl Citrate (Sublimaze) 25 mcg Q5MP PRN IV PAIN LEVEL 5-10 08/02/20 11:45 08/02/20 12:45 DC Heparin Sodium (Porcine) (Heparin) 5,000 units Q12H SC 07/30/20 21:00 08/01/20 21:11 Home Med (Med Rec Complete!) ASDIRECTED XX 07/30/20 21:30 07/30/20 22:04 DC Lactated Ringer's 1,000 ml @ 100 mls/hr Q10H IV 08/02/20 11:45 08/02/20 12:45 DC Levofloxacin 750 mg/IV Miscellaneous Supplies 150 ml @ 100 mls/hr Q24H IV 07/30/20 22:00 08/01/20 21:11 Levothyroxine Sodium (Synthroid) 75 mcg DAILY@0600 PO 07/31/20 06:00 08/02/20 06:08 Magnesium Gluconate (Magnesium Gluconate) 250 mg DAILY PO 07/31/20 16:00 08/02/20 13:24 Metoclopramide HCl (REGLAN INJection) 10 mg Q6HP PRN IV NAUSEA OR VOMITING 08/02/20 11:45 08/02/20 12:45 DC Omeprazole (PriLOSEC) 40 mg BID PO 07/31/20 09:00 08/02/20 13:26 Ondansetron HCl (ZOFRAN INJection) 4 mg Q4HP PRN IV NAUSEA OR VOMITING 08/02/20 11:45 08/02/20 12:45 DC Prednisone (Deltasone) 40 mg DAILY PO 07/31/20 09:00 08/02/20 13:24 Sucralfate (Carafate) 1 gm BID@0800,1800 PO 07/31/20 08:00 08/02/20 13:25 Allergies Coded Allergies: No Known Allergies (Verified Allergy, Unknown, 07/30/20) Nevaeh Sweeney MD Aug 02, 2020 15:16
--- NOTE | 2020-08-02 18:13 | ECGEPIP ---
[facility] Test Date: 2020-08-02 Pat Name: ROSHAN LOVELACE Department: Room: [place] [address] Gender: Female Database Engineer: ANTONI : 1945 Requested By: Cruz Brennan Order Number: [id number] Reading MD: Benton Rodriguez Measurements Intervals [place] Rate: 98 P: 34 HI: 155 QRS: -17 QRSD: 136 T: 83 QT: 391 QTc: 501 Interpretive Statements Normal sinus rhythm with PACs Low QRS complex voltage in the limb leads Low QRS complex voltage in the limb leads Left bundle branch block Comparison tracing not available Electronically Signed on 08-02-2020 18:13:19 EST by Benton Rodriguez
[2020-08-02] MEDS: LevoFLOXacin IV 750 MG in IV 1 EA IV SCH (21:30)
[2020-08-03] VITALS: BP 105/54
[2020-08-03] MEDS: IPRATROPIUM 0.5MG/ALBUTEROL 2.5MG INH SOL UD 3ML (DUONEB) NEB SCH ×4 (02:00→19:39)
[2020-08-03] MEDS: LEVOTHYROXINE 75MCG TABLET (0.075MG) PO SCH (05:23)
[2020-08-03] MEDS: CEFEPIME HCL 2 GM in D5W MINI-BAG PLUS 50 ML IV SCH ×2 (05:23→18:46)
[2020-08-03 05:28] LABS: BASO % 0.1 % (0.0-1.0); HEMATOCRIT 30.1 % (36.0-47.0); HEMOGLOBIN 9.5 g/dl (12.0-15.5); LYMPH # 0.5 10^3/uL (1.5-5.0); MEAN CORPUSCULAR HEMOGLOBIN 30.7 pg (27.0-33.0); MEAN CORPUSCULAR HGB CONC 31.6 g/dl (32.0-36.5); MEAN CORPUSCULAR VOLUME 97.4 fl (80.0-96.0); MONO # 0.6 10^3/uL (0.0-0.8); MONO % 4.4 % (0.0-5.0); NEUTROPHILS # 12.3 10^3/uL (1.5-8.5); NEUTROPHILS % 90.5 % (36.0-66.0); PLATELET COUNT, AUTOMATED 436 10^3/uL (150-450); RED BLOOD COUNT 3.09 10^6/uL (4.00-5.40); WHITE BLOOD COUNT 13.5 10^3/uL (4.0-10.0)
[2020-08-03 05:53] LABS: BLOOD UREA NITROGEN 4 MG/DL (7-18); CALCIUM LEVEL 8.6 MG/DL (8.8-10.2); CARBON DIOXIDE LEVEL 26 MEQ/L (21-32); CHLORIDE LEVEL 100 MEQ/L (98-107); CREATININE FOR GFR 0.78 MG/DL (0.55-1.30); GLOMERULAR FILTRATION RATE > 60.0 (>39); GLUCOSE, FASTING 91 MG/DL (70-100); MAGNESIUM LEVEL 1.6 MG/DL (1.8-2.4); POTASSIUM SERUM 3.7 MEQ/L (3.5-5.1); SODIUM LEVEL 133 MEQ/L (136-145)
[2020-08-03 07:40] VITALS: BP 116/54
[2020-08-03] MEDS: OMEPRAZOLE 20 MG CAP PO SCH ×2 (09:58→20:09)
[2020-08-03] MEDS: HEPARIN SOD (PORCINE) 5000UNITS/ML 1ML VIAL/SYRINGE SC SCH ×2 (09:58→20:09)
[2020-08-03] MEDS: SUCRALFATE 1 GM TAB PO SCH ×2 (09:59→18:37)
[2020-08-03] MEDS: ASPIRIN 81 MG CHEW TABLET PO SCH (09:59)
[2020-08-03] MEDS: MAGNESIUM GLUCONATE 500 MG TAB PO SCH (09:59)
[2020-08-03] MEDS: MAGNESIUM OXIDE 400 MG TAB (MAG-OX) PO SCH ×2 (09:59→20:10)
--- NOTE | 2020-08-03 10:35 | IPN ---
PULMONARY PROGRESS NOTE DATE: 08/03/2020 SUBJECTIVE: I again attended to Savannah Rodas here in the Progressive Care Unit. Patient was examined, chart reviewed. I spoke at length with the nurse at the bedside as well as Dr. Sweeney her attending. She denies any new complaints overnight. T-max 98, blood pressure 105-116 systolic, heart rate generally in the 70s-80s, respiratory rate 16-18 and unlabored. She says she is breathing a little easier since her bronchoscopy yesterday. I have no pathology specimens available to me yet. PHYSICAL EXAM: On exam she is awake, alert and appropriate, quite comfortable. HEENT: Pupils react, sclerae clear. Nasal cannula oxygen in place. Neck: Trachea is midline. Chest: Again shows near complete absence of breath sounds in the left chest with some egophony at the apex. Right chest has some occasional rhonchus that clears. No other focal adventitious breath sounds are identified. Cardiac: With some ectopy. Peripheral pulses palpable. No edema. Abdomen: Soft, nontender with active bowel sounds, no organomegaly or masses. Extremities: Without cyanosis or clubbing. Neurologically: She is awake, alert and appropriate. Psychiatric: Normal mood and affect. LABORATORY DATA: White blood cell count 13.5, hemoglobin 9.5, platelet count 436,000, 90% segmented neutrophils, no bands. Sodium 133, K 3.7, chloride 100, CO2 26, BUN 4, creatinine 0.78. IMPRESSION: 1. Obstructing lesions of the left lung. 2. Underlying obstructive lung disease. 3. Hypoxemic respiratory failure. 4. Long standing previous tobacco abuse. RECOMMENDATIONS AND PLAN: At this point I spoke with Dr. Post from pathology. Although the lab is technically closed she was able to find a tech that will come in and process her specimens for us and we should have an answer by tomorrow morning either way. My hope is that we were able to get viable specimens. If not she will need a repeat procedure, but my hope is we were able to achieve something with the needle aspirates and cell block. I had a long discussion with the patient in that regard. When a definitive diagnosis is made she lives only 2 blocks from the [facility] in [place] and certainly we can make arrangements for her to be treated there. In the interim I have spoke with Dr. Sweeney. We plan on getting over to an oral regimen and to make arrangements hopefully to get her discharged in the next several days. We will proceed as outlined above. Further recommendations will be made in the Progress Record as new information becomes available.
[2020-08-03 11:49] VITALS: BP 109/51
--- NOTE | 2020-08-03 12:15 | IPNPDOC ---
Date Seen The patient was seen on 08/03/20. Progress Note SUBJECTIVE: WBC improved to 13.5, bronch cx only some yeast. Pathology from bronchoscopy to be processed today hopefully. Remains on 4 L NC since procedure. Patient denied fever, chills, nausea, vomiting, diarrhea or dysuria. OBJECTIVE: PHYSICAL EXAM: VS: Please see below GENERAL APPEARANCE: NAD, resting in bed, AAOx 3 HEENT: no scleral icterus, no JVD, EOMI, nasal cannula in place CARDIOVASCULAR: S1S2, no M/R/G LUNGS: Diminished lung sounds bilaterally, occasional rhonchi, no W/Rales ABDOMEN: soft & not tender w palpitation, BS + in 4 quad, no organomegaly MUSCULOSKELETAL: no cyanosis, no swelling INTEGUMENT: no generalized palor NEUROLOGICAL: cranial nerve function from 2-12 intact intact, follows commands, speech not dysarthric LABS: Please see below MICRO: BCx NG to date Bronchial washing GS: mod WBC, no organisms Bronchial washing cx: yeast, pending official result Bronchial washings fungal studies: pending PATHOLOGY: FNA, cytology pending from bronchoscopy IMAGING: CT chest: Suspected left hilar mass causing obstructive collapse to the left lung with moderate left effusion and associated mediastinal adenopathy. ASSESSMENT: Patient 75 years old female with past mental history of chronic kidney diseases, diastolic CHF, hypertension, hypothyroidism was transferred from [facility] with shortness of breath. Patient was admitted to [place] with sepsis secondary to pneumonia. Patient was found to have left lower lobe pneumonia with hypoxia, patient received treatment with ceftriaxone and azithromycin initially with some improvement. However on 07/27 patient developed increased shortness of breath, CT scan was done and showed a small left-sided pleural effusion with extensive parenchymal diseases in the left lower lobe with confluent left hilar mass around 4 cm consistent with postobstructive pneumonitis. Follow-up CT on 07/30/20 showed complete opacification of the left hemithorax secondary to left hilar mass causing complete collapse to the left lung with associated pleural effusion and volume loss. Underlying mediastinal and hilar adenopathy was noted as well. 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 Levaquin started. Patient was transferred to [facility] for bronchoscopy. Case was discussed with Dr. Dixon. Also patient was found to have UTI, urine culture was positive for Trichomonas specious. Patient received a few doses with Flagyl 500 mg by mouth twice a day. Echo was done on 07/27 and showed ejection fraction of 55% with moderate pericardial effusion. 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 LL pneumonia with collapsed lung. -Sputum culture positive for Xanthonomas maltophilia from prior admission at [facility] -WBC improving, afebrile -Currently on 4 L NC post bronch. RA is baseline. Desaturates with breathing into 85-86% on 4 L NC. With rest she improves. -Pulmonology following -F/u official bronch Cx, fungal studies -Daily labs -C/w levofloxacin, cefepime Left lung mass with mediastinal adenopathy, concern for malignancy -Hx of smoking -Fiberoptic bronchoscopy with washes, brushes, biopsies, fine needle aspirate, and photos done 08/02/20: Complete obstruction of the distal left mainstem by submucosal infiltration of tumor -F/u path hopefully in next 24-48 hours. -Pulmonary on board Mod pericardial effusion -Denies chest pain, incr SOB -Will request echo results from 07/27/20 and review -May require cardiology consult Hypothyroidism -C/w levothyroxine Hypertension -C/w cardioprotective medications Trichomonas UTI -WBC improved -S/p flagyl treatment History of GI bleed 2/2 to duodenal ulcer -During hospital stay in [facility] patient developed acute anemia. -EGD was done patient was found to have a bleeding duodenal ulcer. -Continue PPI and Carafate -Hemoglobin stable -Daily CBC GI px -PPI DVT px -Recent GI bleed -Holding AC with recent duodenal ulcer and bleed, SCD and teds DISPOSITION: PT/OT after discharge is recommended. She will have to go home with home oxygen as well so when we know her discharge is likely within 24 hours, we will order O2 studies to plan. Plan is discharge home when medically improved with follow up in her local area of [place]. . VS, I&O, 24H, Fishbone Vital Signs/I&O Vital Signs Date Time Temp Pulse Resp B/P (MAP) Pulse Ox O2 Delivery O2 Flow Rate FiO2 08/03/20 11:49 98.4 79 18 109/51 (70) 95 Nasal Cannula 4.0 I&O- Last 24 Hours up to 6 AM 08/03/20 06:00 Intake Total 1755 ml Output Total 700 ml Balance 1055 ml Laboratory Data 24H LABS Laboratory Tests 2 08/03/20 05:01: Immature Granulocyte % (Auto) 1.0, Neutrophils (%) (Auto) 90.5H, Lymphocytes (%) (Auto) 4.0L, Monocytes (%) (Auto) 4.4, Eosinophils (%) (Auto) 0.0, Basophils (%) (Auto) 0.1, Neutrophils # (Auto) 12.3H, Lymphocytes # (Auto) 0.5L, Monocytes # (Auto) 0.6, Eosinophils # (Auto) 0.0, Basophils # (Auto) 0.0, Nucleated Red Blood Cells % (auto) 0.0, Anion Gap 7L, Glomerular Filtration Rate > 60.0, Calcium Level 8.6L, Magnesium Level 1.6L CBC/BMP Laboratory Tests 08/03/20 05:01 Microbiology Microbiology 08/02/20 Acid Fast Stain - Final, Resulted 08/02/20 Mycobacterial Culture, Resulted Pending 08/02/20 Fungal Smear, Resulted Pending 08/02/20 Fungal Culture, Resulted Pending 08/02/20 Gram Stain - Final, Resulted 08/02/20 Bronchial Aspirate Culture - Preliminary, Resulted Yeast Like Organism 08/01/20 Blood Culture - Preliminary, Resulted No Growth after 48 hours. All Specime... 08/01/20 Blood Culture - Preliminary, Resulted No Growth after 48 hours. All Specime... Current Medications Current Medications Medications (Trade) Dose Ordered Sig/Tato Route PRN Reason Start Time Stop Time Status Last Admin Dose Admin Acetaminophen (Tylenol Tab) 650 mg Q4H PRN PO PAIN OR FEVER 07/30/20 20:30 Albuterol Sulfate (Proventil Neb) 2.5 mg Q4HP PRN NEB SHORTNESS OF BREATH 07/31/20 02:00 Albuterol/ Ipratropium (Duoneb (Ipr 0.5mg/Alb 2.5mg)) 3 ml RQ6H NEB 07/31/20 02:00 08/03/20 07:41 Aspirin (Aspirin Chewable) 81 mg DAILY PO 07/31/20 09:00 08/03/20 09:59 Cefepime HCl 2 gm/ Dextrose 50 ml @ 100 mls/hr Q12H IV 08/01/20 18:00 08/03/20 05:23 Fentanyl Citrate (Sublimaze) 25 mcg Q5MP PRN IV PAIN LEVEL 5-10 08/02/20 11:45 08/02/20 12:45 DC Heparin Sodium (Porcine) (Heparin) 5,000 units Q12H SC 07/30/20 21:00 08/03/20 09:58 Home Med (Med Rec Complete!) ASDIRECTED XX 07/30/20 21:30 07/30/20 22:04 DC Lactated Ringer's 1,000 ml @ 100 mls/hr Q10H IV 08/02/20 11:45 08/02/20 12:45 DC Levofloxacin 750 mg/IV Miscellaneous Supplies 150 ml @ 100 mls/hr Q24H IV 07/30/20 22:00 08/02/20 21:30 Levothyroxine Sodium (Synthroid) 75 mcg DAILY@0600 PO 07/31/20 06:00 08/03/20 05:23 Magnesium Gluconate (Magnesium Gluconate) 250 mg DAILY PO 07/31/20 16:00 08/03/20 09:59 Magnesium Oxide (Mag-Ox) 400 mg BID PO 08/03/20 09:00 08/03/20 09:59 Metoclopramide HCl (REGLAN INJection) 10 mg Q6HP PRN IV NAUSEA OR VOMITING 08/02/20 11:45 08/02/20 12:45 DC Omeprazole (PriLOSEC) 40 mg BID PO 07/31/20 09:00 08/03/20 09:58 Ondansetron HCl (ZOFRAN INJection) 4 mg Q4HP PRN IV NAUSEA OR VOMITING 08/02/20 11:45 08/02/20 12:45 DC Prednisone (Deltasone) 40 mg DAILY PO 07/31/20 09:00 08/02/20 15:16 DC 08/02/20 13:24 Sucralfate (Carafate) 1 gm BID@0800,1800 PO 07/31/20 08:00 08/03/20 09:59 Allergies Coded Allergies: No Known Allergies (Verified Allergy, Unknown, 07/30/20) Nevaeh Sweeney MD Aug 03, 2020 12:15
[2020-08-03 20:00] VITALS: BP 103/56
[2020-08-03] MEDS: LevoFLOXacin IV 750 MG in IV 1 EA IV SCH (21:36)
[2020-08-03 23:11] VITALS: BP 82/54
[2020-08-03 23:49] VITALS: BP 80/56
[2020-08-04] VITALS (17 sets, daily range): BP systolic 74–117; BP diastolic 40–64
[2020-08-04] MEDS ORDERED: NS 1,000 ML IV SCH
[2020-08-04] MEDS ORDERED: SODIUM CHLORIDE 0.9% 1000ML IV ONE (01:30)
[2020-08-04] MEDS: IPRATROPIUM 0.5MG/ALBUTEROL 2.5MG INH SOL UD 3ML (DUONEB) NEB SCH ×4 (02:00→18:28)
[2020-08-04] MEDS: LEVOTHYROXINE 75MCG TABLET (0.075MG) PO SCH (05:44)
[2020-08-04] MEDS: CEFEPIME HCL 2 GM in D5W MINI-BAG PLUS 50 ML IV SCH (05:45)
[2020-08-04 06:28] LABS: BASO % 0.1 % (0.0-1.0); EOS # 0.1 10^3/uL (0.0-0.5); EOS % 0.7 % (0.0-3.0); HEMATOCRIT 28.1 % (36.0-47.0); LYMPH # 0.8 10^3/uL (1.5-5.0); LYMPH % 5.8 % (24.0-44.0); MEAN CORPUSCULAR HEMOGLOBIN 31.1 pg (27.0-33.0); MEAN CORPUSCULAR VOLUME 97.2 fl (80.0-96.0); MONO # 0.8 10^3/uL (0.0-0.8); MONO % 5.8 % (0.0-5.0); NEUTROPHILS # 11.7 10^3/uL (1.5-8.5); NEUTROPHILS % 86.6 % (36.0-66.0); PLATELET COUNT, AUTOMATED 370 10^3/uL (150-450); RED BLOOD COUNT 2.89 10^6/uL (4.00-5.40); WHITE BLOOD COUNT 13.5 10^3/uL (4.0-10.0)
[2020-08-04 07:04] LABS: BLOOD UREA NITROGEN 8 MG/DL (7-18); CALCIUM LEVEL 8.1 MG/DL (8.8-10.2); CARBON DIOXIDE LEVEL 28 MEQ/L (21-32); CHLORIDE LEVEL 102 MEQ/L (98-107); CREATININE FOR GFR 0.85 MG/DL (0.55-1.30); GLOMERULAR FILTRATION RATE > 60.0 (>39); GLUCOSE, FASTING 84 MG/DL (70-100); MAGNESIUM LEVEL 1.6 MG/DL (1.8-2.4); POTASSIUM SERUM 3.4 MEQ/L (3.5-5.1); SODIUM LEVEL 134 MEQ/L (136-145)
[2020-08-04] MEDS ORDERED: POTASSIUM CHLORIDE 10 MEQ SR TABLET PO ONE (08:00)
[2020-08-04] MEDS ORDERED: MAG SULF 1GM/100ML (MAG RUN) 1 GM in IV 1 EA IV ONE (08:30)
[2020-08-04] MEDS ORDERED: MAGNESIUM OXIDE 400 MG TAB (MAG-OX) PO SCH (09:00)
[2020-08-04] MEDS: PANTOPRAZOLE 40MG VIAL (C9113 PER 1) IV SCH ×2 (09:46→20:17)
[2020-08-04] MEDS: SUCRALFATE 1 GM TAB PO SCH (09:46)
[2020-08-04] MEDS: KCL 10MEQ/100ML SWI (KRUN) 10 MEQ in IV 1 EA IV SCH ×3 (09:47→12:04)
--- NOTE | 2020-08-04 10:27 | IPNPDOC ---
Date Seen The patient was seen on 08/04/20. Progress Note SUBJECTIVE: Bloody stools x 3 overnight and one this AM with clots. H/H slight drop from 9.6/27.9 to 9.0/28, made NPO. BP slightly lower than baseline and IVFs incr to 100 cc/hr. Surgery discussed case with myself. Will proceed with checking CBC Q8Hrs and monitoring on tele, conservative treatment per surgery recommendations. She is currently asymptomatic and denies incr shortness of breath, incr weakness, lightheadedness, blurry vision, fever, chills, nausea, vomiting, diarrhea or dysuria. OBJECTIVE: PHYSICAL EXAM: VS: Please see below GENERAL APPEARANCE: NAD, resting in bed, AAOx 3 HEENT: no scleral icterus, no JVD, EOMI, nasal cannula in place CARDIOVASCULAR: S1S2, no M/R/G LUNGS: Diminished lung sounds bilaterally, occasional rhonchi, no rales ABDOMEN: soft & not tender w palpitation, BS + in 4 quad, no organomegaly MUSCULOSKELETAL: no cyanosis, no swelling INTEGUMENT: no generalized palor NEUROLOGICAL: cranial nerve function from 2-12 intact intact, follows commands, speech not dysarthric LABS: Please see below MICRO: BCx NG to date Bronchial washing GS: mod WBC, no organisms Bronchial washing cx: yeast like organisms, few. Bronchial washings fungal studies: pending PATHOLOGY: FNA, cytology pending from bronchoscopy IMAGING: CT chest: Suspected left hilar mass causing obstructive collapse to the left lung with moderate left effusion and associated mediastinal adenopathy. ASSESSMENT: Patient 75 years old female with past mental history of chronic kidney diseases, diastolic CHF, hypertension, hypothyroidism was transferred from [facility] with shortness of breath. Patient was admitted to [place] with sepsis secondary to pneumonia. Patient was found to have left lower lobe pneumonia with hypoxia, patient received treatment with ceftriaxone and azithromycin initially with some improvement. However on 07/27 patient developed increased shortness of breath, CT scan was done and showed a small left-sided pleural effusion with extensive parenchymal diseases in the left lower lobe with confluent left hilar mass around 4 cm consistent with postobstructive pneumonitis. Follow-up CT on 07/30/20 showed complete opacification of the left hemithorax secondary to left hilar mass causing complete collapse to the left lung with associated pleural effusion and volume loss. Underlying mediastinal and hilar adenopathy was noted as well. 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 Levaquin started. Patient was transferred to [facility] for bronchoscopy. Case was discussed with Dr. Dixon. Also patient was found to have UTI, urine culture was positive for Trichomonas specious. Patient received a few doses with Flagyl 500 mg by mouth twice a day. Echo was done on 07/27 and showed ejection fraction of 55% with moderate pericardial effusion. PLAN: Acute GI bleed with recent history of GI bleed 2/2 to duodenal ulcer -Mild hypotension, no tachycardia. Asymptomatic with slight drop in H/H at 9.0/28.1. -Stopped heparin, ASA -EGD done on 07/29/20 during recent hospital stay in [facility] patient de veloped acute anemia. Results were bleeding duodenal ulcer. -Discussed case with surgery (Dr. Connors) who is not recommending anything surgical so advised me to not consult him unless there is significantly more bleeding that would require "cutting her open" for surgery. -Type and screen and STAT coags ordered. 2 units on hold. -Incr IVFs to 100 cc/hr, CBC Q8Hrs, tele, PPI BID IV, carafate PO, NPO status for now. 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 LL pneumonia with collapsed lung. -Sputum culture positive for Xanthonomas maltophilia from prior admission at [facility] -WBC 13K, afebrile -Currently on 3-4 L NC post bronch. RA is baseline. Desaturates with breathing into 70-80's on 3-4 L NC. With rest she improves. -Pulmonology following -F/u official bronch Cx, fungal studies -Daily labs -C/w levofloxacin, cefepime Left lung mass with mediastinal adenopathy, concern for malignancy -Hx of smoking -Fiberoptic bronchoscopy with washes, brushes, biopsies, fine needle aspirate, and photos done 08/02/20: Complete obstruction of the distal left mainstem by submucosal infiltration of tumor -F/u path hopefully in next 24-48 hours. -Pulmonary on board Mod pericardial effusion -Denies chest pain, incr SOB -Will request echo results from 07/27/20 Hypothyroidism -C/w levothyroxine Hypertension -C/w cardioprotective medications Trichomonas UTI -WBC improved -S/p flagyl treatment GI px -PPI IV BID DVT px -SCD, teds DISPOSITION: Plan is discharge home when medically improved with follow up in her local area of [place]. . VS, I&O, 24H, Fishbone Vital Signs/I&O Vital Signs Date Time Temp Pulse Resp B/P (MAP) Pulse Ox O2 Delivery O2 Flow Rate FiO2 08/04/20 06:29 92 24 92/64 (73) 95 Nasal Cannula 3.0 08/04/20 06:00 97.9 I&O- Last 24 Hours up to 6 AM 08/04/20 06:00 Intake Total 1818 ml Output Total 0 ml Balance 1818 ml Laboratory Data 24H LABS Laboratory Tests 2 08/04/20 05:33: Immature Granulocyte % (Auto) 1.0, Neutrophils (%) (Auto) 86.6H, Lymphocytes (%) (Auto) 5.8L, Monocytes (%) (Auto) 5.8H, Eosinophils (%) (Auto) 0.7, Basophils (%) (Auto) 0.1, Neutrophils # (Auto) 11.7H, Lymphocytes # (Auto) 0.8L, Monocytes # (Auto) 0.8, Eosinophils # (Auto) 0.1, Basophils # (Auto) 0.0, Nucleated Red Blood Cells % (auto) 0.0, Anion Gap 4L, Glomerular Filtration Rate > 60.0, Calcium Level 8.1L, Magnesium Level 1.6L CBC/BMP Laboratory Tests 08/04/20 05:33 Microbiology Microbiology 08/02/20 Acid Fast Stain - Final, Resulted 08/02/20 Mycobacterial Culture, Resulted Pending 08/02/20 Fungal Smear, Resulted Pending 08/02/20 Fungal Culture, Resulted Pending 08/02/20 Gram Stain - Final, Complete 08/02/20 Bronchial Aspirate Culture - Final, Complete Yeast Like Organism 08/01/20 Blood Culture - Preliminary, Resulted No Growth after 72 hours. All specime... 08/01/20 Blood Culture - Preliminary, Resulted No Growth after 72 hours. All specime... Current Medications Current Medications Medications (Trade) Dose Ordered Sig/Tato Route PRN Reason Start Time Stop Time Status Last Admin Dose Admin Acetaminophen (Tylenol Tab) 650 mg Q4H PRN PO PAIN OR FEVER 07/30/20 20:30 Albuterol Sulfate (Proventil Neb) 2.5 mg Q4HP PRN NEB SHORTNESS OF BREATH 07/31/20 02:00 Albuterol/ Ipratropium (Duoneb (Ipr 0.5mg/Alb 2.5mg)) 3 ml RQ6H NEB 07/31/20 02:00 08/04/20 07:27 Aspirin (Aspirin Chewable) 81 mg DAILY PO 07/31/20 09:00 08/04/20 08:15 DC 08/03/20 09:59 Cefepime HCl 2 gm/ Dextrose 50 ml @ 100 mls/hr Q12H IV 08/01/20 18:00 08/04/20 05:45 Fentanyl Citrate (Sublimaze) 25 mcg Q5MP PRN IV PAIN LEVEL 5-10 08/02/20 11:45 08/02/20 12:45 DC Heparin Sodium (Porcine) (Heparin) 5,000 units Q12H SC 07/30/20 21:00 08/04/20 03:46 DC 08/03/20 20:09 Home Med (Med Rec Complete!) ASDIRECTED XX 07/30/20 21:30 07/30/20 22:04 DC Lactated Ringer's 1,000 ml @ 100 mls/hr Q10H IV 08/02/20 11:45 08/02/20 12:45 DC Levofloxacin 750 mg/IV Miscellaneous Supplies 150 ml @ 100 mls/hr Q24H IV 07/30/20 22:00 08/03/20 21:36 Levothyroxine Sodium (Synthroid) 75 mcg DAILY@0600 PO 07/31/20 06:00 08/04/20 08:26 DC 08/04/20 05:44 Magnesium Gluconate (Magnesium Gluconate) 250 mg DAILY PO 07/31/20 16:00 08/04/20 08:26 DC 08/03/20 09:59 Magnesium Oxide (Mag-Ox) 400 mg BID PO 08/03/20 09:00 08/04/20 08:01 DC 08/03/20 20:10 Magnesium Oxide (Mag-Ox) 800 mg BID PO 08/04/20 09:00 08/04/20 08:26 DC Metoclopramide HCl (REGLAN INJection) 10 mg Q6HP PRN IV NAUSEA OR VOMITING 08/02/20 11:45 08/02/20 12:45 DC Omeprazole (PriLOSEC) 40 mg BID PO 07/31/20 09:00 08/04/20 08:26 DC 08/03/20 20:09 Ondansetron HCl (ZOFRAN INJection) 4 mg Q4HP PRN IV NAUSEA OR VOMITING 08/02/20 11:45 08/02/20 12:45 DC Pantoprazole Sodium (Protonix) 40 mg BID IV 08/04/20 09:00 08/04/20 09:46 Potassium Chloride 10 meq/ IV Miscellaneous Supplies 100 ml @ 100 mls/hr Q1H IV 08/04/20 08:30 08/04/20 11:29 08/04/20 09:47 Prednisone (Deltasone) 40 mg DAILY PO 07/31/20 09:00 08/02/20 15:16 DC 08/02/20 13:24 Sodium Chloride 1,000 ml @ 100 mls/hr Q10H IV 08/04/20 00:00 08/04/20 14:24 08/04/20 00:07 Sucralfate (Carafate) 1 gm BID@0800,1800 PO 07/31/20 08:00 08/04/20 09:46 Allergies Coded Allergies: No Known Allergies (Verified Allergy, Unknown, 07/30/20) Nevaeh Sweeney MD Aug 04, 2020 10:26
[2020-08-04] MEDS: SUCRALFATE SUSP 1GM/10ML UD PO SCH ×3 (12:04→20:16)
[2020-08-04 12:38] LABS: HEMATOCRIT 29.3 % (36.0-47.0); HEMOGLOBIN 9.2 g/dl (12.0-15.5); MEAN CORPUSCULAR HEMOGLOBIN 30.7 pg (27.0-33.0); MEAN CORPUSCULAR HGB CONC 31.4 g/dl (32.0-36.5); MEAN CORPUSCULAR VOLUME 97.7 fl (80.0-96.0); PLATELET COUNT, AUTOMATED 420 10^3/uL (150-450); WHITE BLOOD COUNT 14.3 10^3/uL (4.0-10.0)
[2020-08-04 12:48] LABS: INR 1.06
[2020-08-04 12:50] LABS: PARTIAL THROMBOPLASTIN TIME 39.7 SECONDS (24.2-38.5)
[2020-08-04] MEDS ORDERED: methylPREDNISolone 125MG 2ML VIAL IV SCH (14:00)
[2020-08-04] MEDS: NS 1,000 ML IV SCH (14:38)
[2020-08-04] MEDS: methylPREDNISolone 40MG 1ML VIAL IV SCH (14:38)
[2020-08-04 20:34] LABS: HEMATOCRIT 27.8 % (36.0-47.0); HEMOGLOBIN 8.4 g/dl (12.0-15.5); MEAN CORPUSCULAR HEMOGLOBIN 29.7 pg (27.0-33.0); MEAN CORPUSCULAR HGB CONC 30.2 g/dl (32.0-36.5); MEAN CORPUSCULAR VOLUME 98.2 fl (80.0-96.0); PLATELET COUNT, AUTOMATED 350 10^3/uL (150-450); RED BLOOD COUNT 2.83 10^6/uL (4.00-5.40); WHITE BLOOD COUNT 12.7 10^3/uL (4.0-10.0)
[2020-08-04] MEDS: LevoFLOXacin IV 750 MG in IV 1 EA IV SCH (21:44)
[2020-08-05] MEDS: NS 1,000 ML IV SCH ×3 (01:36→21:45)
[2020-08-05] MEDS: IPRATROPIUM 0.5MG/ALBUTEROL 2.5MG INH SOL UD 3ML (DUONEB) NEB SCH ×4 (02:00→19:12)
[2020-08-05 05:46] LABS: HEMATOCRIT 27.8 % (36.0-47.0); HEMOGLOBIN 8.5 g/dl (12.0-15.5); MEAN CORPUSCULAR HEMOGLOBIN 29.9 pg (27.0-33.0); MEAN CORPUSCULAR HGB CONC 30.6 g/dl (32.0-36.5); MEAN CORPUSCULAR VOLUME 97.9 fl (80.0-96.0); PLATELET COUNT, AUTOMATED 395 10^3/uL (150-450); RED BLOOD COUNT 2.84 10^6/uL (4.00-5.40)
[2020-08-05 06:00] VITALS: BP 118/61
[2020-08-05 06:13] LABS: BLOOD UREA NITROGEN 5 MG/DL (7-18); CALCIUM LEVEL 7.4 MG/DL (8.8-10.2); CARBON DIOXIDE LEVEL 26 MEQ/L (21-32); CHLORIDE LEVEL 105 MEQ/L (98-107); CREATININE FOR GFR 0.62 MG/DL (0.55-1.30); GLOMERULAR FILTRATION RATE > 60.0 (>39); GLUCOSE, FASTING 89 MG/DL (70-100); MAGNESIUM LEVEL 1.9 MG/DL (1.8-2.4); POTASSIUM SERUM 4.2 MEQ/L (3.5-5.1); SODIUM LEVEL 137 MEQ/L (136-145)
[2020-08-05] MEDS: PANTOPRAZOLE 40MG VIAL (C9113 PER 1) IV SCH ×2 (08:44→21:45)
[2020-08-05] MEDS: SUCRALFATE SUSP 1GM/10ML UD PO SCH ×4 (08:44→21:45)
[2020-08-05 12:10] LABS: HEMATOCRIT 27.2 % (36.0-47.0); HEMOGLOBIN 8.5 g/dl (12.0-15.5); MEAN CORPUSCULAR HEMOGLOBIN 30.5 pg (27.0-33.0); MEAN CORPUSCULAR HGB CONC 31.3 g/dl (32.0-36.5); MEAN CORPUSCULAR VOLUME 97.5 fl (80.0-96.0); PLATELET COUNT, AUTOMATED 423 10^3/uL (150-450); RED BLOOD COUNT 2.79 10^6/uL (4.00-5.40); WHITE BLOOD COUNT 15.8 10^3/uL (4.0-10.0)
--- NOTE | 2020-08-05 13:24 | IPNPDOC ---
Date Seen The patient was seen on 08/05/20. Progress Note SUBJECTIVE: Total of 7 blood BMs over yesterday, remains on NPO status. H/H 8.5/27.8. BP stable on IVFs. She complains only of dry mouth but is currently asymptomatic and denies incr shortness of breath, incr weakness, lightheadedness, blurry vision, fever, chills, nausea, vomiting, diarrhea or dysuria. OBJECTIVE: PHYSICAL EXAM: VS: Please see below GENERAL APPEARANCE: NAD, resting in bed, AAOx 3 HEENT: no scleral icterus, no JVD, EOMI, nasal cannula in place CARDIOVASCULAR: S1S2, no M/R/G LUNGS: Diminished lung sounds bilaterally, occasional rhonchi, no rales ABDOMEN: soft & not tender w palpitation, BS + in 4 quad, no organomegaly MUSCULOSKELETAL: no cyanosis, no swelling INTEGUMENT: no generalized pallor NEUROLOGICAL: cranial nerve function from 2-12 intact intact, follows commands, speech not dysarthric LABS: Please see below MICRO: BCx NG to date Bronchial washing GS: mod WBC, no organisms Bronchial washing cx: yeast like organisms, few. Bronchial washings fungal studies: pending PATHOLOGY: FNA, cytology pending from bronchoscopy IMAGING: CT chest: Suspected left hilar mass causing obstructive collapse to the left lung with moderate left effusion and associated mediastinal adenopathy. ASSESSMENT: Patient 75 years old female with past mental history of chronic kidney diseases, diastolic CHF, hypertension, hypothyroidism was transferred from [facility] with shortness of breath. Patient was admitted to [place] with sepsis secondary to pneumonia. Patient was found to have left lower lobe pneumonia with hypoxia, patient received treatment with ceftriaxone and azithromycin initially with some improvement. However on 07/27 patient developed increased shortness of breath, CT scan was done and showed a small left-sided pleural effusion with extensive parenchymal diseases in the left lower lobe with confluent left hilar mass around 4 cm consistent with postobstructive pneumonitis. Follow-up CT on 07/30/20 showed complete opacification of the left hemithorax secondary to left hilar mass causing complete collapse to the left lung with associated pleural effusion and volume loss. Underlying mediastinal and hilar adenopathy was noted as well. 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 Levaquin started. Patient was transferred to [facility] for bronchoscopy. Case was discussed with Dr. Dixon. Also patient was found to have UTI, urine culture was positive for Trichomonas specious. Patient received a few doses with Flagyl 500 mg by mouth twice a day. Echo was done on 07/27 and showed ejection fraction of 55% with moderate pericardial effusion. PLAN: Acute GI bleed with recent history of GI bleed 2/2 to duodenal ulcer -S/p 7 bloody bowel movements over past 24 hours -BP stable on IVF, no tachycardia. Asymptomatic with slight drop in H/H to 8.5/27.8 -Stopped heparin, ASA -EGD done on 07/29/20 during recent hospital stay in [facility] patient developed acute anemia. Results were bleeding duodenal ulcer. -Discussed case with surgery (Dr. Connors) who is not recommending anything surg ical so advised me to not consult him unless there is significantly more bleeding that would require "cutting her open" for surgery. -C/w IVFs to 100 cc/hr, CBC Q8Hrs, tele, PPI BID IV, carafate PO, NPO status for now. 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 LL pneumonia with collapsed lung. -Sputum culture positive for Xanthonomas maltophilia from prior admission at [place] -WBC 15.8K, afebrile -Currently on 3 L NC post bronch. RA is baseline. Desaturates with breathing into 70-80's on 3-4 L NC. With rest she improves. -Micro above -Daily labs -C/w levofloxacin only -Pulmonology following Hypotension poss 2/2 to GI bleed, decreased PO intake -Hx of HTN -Improving with IVFs -Holding all antihypertensive medications. 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 Campbell (pulmonary)- cannot find under path yet -Other cytology, micro pending -Started on solumedrol 40 mg IV daily -Will need Brain MRI when bleeding above stabilizes -Per discussion with pulmonary, will consult radiation/oncology 08/07/19 to evaluate for radiation treatment. Ultimately patient will want to continue treatment in [place], [place]. -Pulmonary following closely Acute hypokalemia- resolved -F/u AM labs Mod pericardial effusion -Reported from prior hospitalization at [facility] -Had repeat echocardiogram on 08/04/20- discussed results with communications technologist who did not see mod pericardial effusion. Official report is pending/needs to be transcribed by cardiology -Denies chest pain, incr SOB Hypothyroidism -Resume levothyroxine when taking PO GI px -PPI IV BID DVT px -SCD, teds Resolved issues: Trichomonas UTI DISPOSITION: Plan is discharge home when medically improved with follow up in her local area of [place]. VS, I&O, 24H, Fishbone Vital Signs/I&O Vital Signs Date Time Temp Pulse Resp B/P (MAP) Pulse Ox O2 Delivery O2 Flow Rate FiO2 08/05/20 09:00 3.0 08/05/20 06:00 98.0 83 20 118/61 (80) 94 Nasal Cannula I&O- Last 24 Hours up to 6 AM 08/05/20 06:00 Intake Total 450 ml Output Total 1000 ml Balance -550 ml Laboratory Data 24H LABS Laboratory Tests 2 08/04/20 20:09: Nucleated Red Blood Cells % (auto) 0.0 08/05/20 05:28: Nucleated Red Blood Cells % (auto) 0.0, Anion Gap 6L, Glomerular Filtration Rate > 60.0, Calcium Level 7.4L, Magnesium Level 1.9 08/05/20 12:02: Nucleated Red Blood Cells % (auto) 0.0 CBC/BMP Laboratory Tests 08/04/20 20:09 08/05/20 05:28 08/05/20 12:02 Microbiology Microbiology 08/02/20 Acid Fast Stain - Final, Resulted 08/02/20 Mycobacterial Culture, Resulted Pending 08/02/20 Fungal Smear, Resulted Pending 08/02/20 Fungal Culture, Resulted Pending 08/02/20 Gram Stain - Final, Complete 08/02/20 Bronchial Aspirate Culture - Final, Complete Yeast Like Organism 08/01/20 Blood Culture - Preliminary, Resulted No Growth after 72 hours. All specime... 08/01/20 Blood Culture - Preliminary, Resulted No Growth after 72 hours. All specime... Current Medications Current Medications Medications (Trade) Dose Ordered Sig/Tato Route PRN Reason Start Time Stop Time Status Last Admin Dose Admin Acetaminophen (Tylenol Tab) 650 mg Q4H PRN PO PAIN OR FEVER 07/30/20 20:30 Albuterol Sulfate (Proventil Neb) 2.5 mg Q4HP PRN NEB SHORTNESS OF BREATH 07/31/20 02:00 Albuterol/ Ipratropium (Duoneb (Ipr 0.5mg/Alb 2.5mg)) 3 ml RQ6H NEB 07/31/20 02:00 08/05/20 14:02 Aspirin (Aspirin Chewable) 81 mg DAILY PO 07/31/20 09:00 08/04/20 08:15 DC 08/03/20 09:59 Cefepime HCl 2 gm/ Dextrose 50 ml @ 100 mls/hr Q12H IV 08/01/20 18:00 08/04/20 13:44 DC 08/04/20 05:45 Fentanyl Citrate (Sublimaze) 25 mcg Q5MP PRN IV PAIN LEVEL 5-10 08/02/20 11:45 08/02/20 12:45 DC Heparin Sodium (Porcine) (Heparin) 5,000 units Q12H SC 07/30/20 21:00 08/04/20 03:46 DC 08/03/20 20:09 Home Med (Med Rec Complete!) ASDIRECTED XX 07/30/20 21:30 07/30/20 22:04 DC Lactated Ringer's 1,000 ml @ 100 mls/hr Q10H IV 08/02/20 11:45 08/02/20 12:45 DC Levofloxacin 750 mg/IV Miscellaneous Supplies 150 ml @ 100 mls/hr Q24H IV 07/30/20 22:00 08/04/20 21:44 Levothyroxine Sodium (Synthroid) 75 mcg DAILY@0600 PO 07/31/20 06:00 08/04/20 08:26 DC 08/04/20 05:44 Magnesium Gluconate (Magnesium Gluconate) 250 mg DAILY PO 07/31/20 16:00 08/04/20 08:26 DC 08/03/20 09:59 Magnesium Oxide (Mag-Ox) 400 mg BID PO 08/03/20 09:00 08/04/20 08:01 DC 08/03/20 20:10 Magnesium Oxide (Mag-Ox) 800 mg BID PO 08/04/20 09:00 08/04/20 08:26 DC Methylprednisolone (SOLU medrol) 40 mg Q24H IV 08/04/20 14:00 08/05/20 14:21 Methylprednisolone (SOLUmedrol) 40 mg Q24H IV 08/04/20 14:00 08/04/20 14:34 DC Metoclopramide HCl (REGLAN INJection) 10 mg Q6HP PRN IV NAUSEA OR VOMITING 08/02/20 11:45 08/02/20 12:45 DC Omeprazole (PriLOSEC) 40 mg BID PO 07/31/20 09:00 08/04/20 08:26 DC 08/03/20 20:09 Ondansetron HCl (ZOFRAN INJection) 4 mg Q4HP PRN IV NAUSEA OR VOMITING 08/02/20 11:45 08/02/20 12:45 DC Pantoprazole Sodium (Protonix) 40 mg BID IV 08/04/20 09:00 08/05/20 08:44 Potassium Chloride 10 meq/ IV Miscellaneous Supplies 100 ml @ 100 mls/hr Q1H IV 08/04/20 08:30 08/04/20 11:29 DC 08/04/20 12:04 Prednisone (Deltasone) 40 mg DAILY PO 07/31/20 09:00 08/02/20 15:16 DC 08/02/20 13:24 Sodium Chloride 1,000 ml @ 100 mls/hr Q10H IV 08/04/20 00:00 08/04/20 13:27 DC 08/04/20 00:07 Sodium Chloride 1,000 ml @ 100 mls/hr Q10H IV 08/04/20 13:30 08/05/20 11:36 Sucralfate (Carafate Suspension) 1 gm ACHS PO 08/04/20 12:00 08/05/20 11:36 Sucralfate (Carafate) 1 gm BID@0800,1800 PO 07/31/20 08:00 08/04/20 10:10 DC 08/04/20 09:46 Allergies Coded Allergies: No Known Allergies (Verified Allergy, Unknown, 07/30/20) Nevaeh Sweeney MD Aug 05, 2020 13:24
[2020-08-05 14:00] VITALS: BP 127/58
[2020-08-05] MEDS: methylPREDNISolone 40MG 1ML VIAL IV SCH (14:21)
[2020-08-05 20:22] LABS: HEMATOCRIT 29.5 % (36.0-47.0); HEMOGLOBIN 9.2 g/dl (12.0-15.5); MEAN CORPUSCULAR HEMOGLOBIN 30.7 pg (27.0-33.0); MEAN CORPUSCULAR HGB CONC 31.2 g/dl (32.0-36.5); MEAN CORPUSCULAR VOLUME 98.3 fl (80.0-96.0); PLATELET COUNT, AUTOMATED 426 10^3/uL (150-450); WHITE BLOOD COUNT 15.7 10^3/uL (4.0-10.0)
[2020-08-05] MEDS: LevoFLOXacin IV 750 MG in IV 1 EA IV SCH (21:45)
[2020-08-05 22:00] VITALS: BP 107/56
[2020-08-06] MEDS: IPRATROPIUM 0.5MG/ALBUTEROL 2.5MG INH SOL UD 3ML (DUONEB) NEB SCH ×4 (02:00→18:28)
[2020-08-06] MEDS: NS 1,000 ML IV SCH ×3 (05:19→23:57)
[2020-08-06 06:00] VITALS: BP 133/64
[2020-08-06 06:27] LABS: BLOOD UREA NITROGEN 5 MG/DL (7-18); CALCIUM LEVEL 7.6 MG/DL (8.8-10.2); CARBON DIOXIDE LEVEL 27 MEQ/L (21-32); CHLORIDE LEVEL 107 MEQ/L (98-107); CREATININE FOR GFR 0.66 MG/DL (0.55-1.30); GLOMERULAR FILTRATION RATE > 60.0 (>39); GLUCOSE, FASTING 83 MG/DL (70-100); MAGNESIUM LEVEL 1.6 MG/DL (1.8-2.4); POTASSIUM SERUM 3.7 MEQ/L (3.5-5.1); SODIUM LEVEL 139 MEQ/L (136-145)
[2020-08-06] MEDS ORDERED: MAG SULF 1GM/100ML (MAG RUN) 1 GM in IV 1 EA IV ONE (09:00)
[2020-08-06] MEDS: PANTOPRAZOLE 40MG VIAL (C9113 PER 1) IV SCH ×2 (10:32→20:56)
[2020-08-06] MEDS: SUCRALFATE SUSP 1GM/10ML UD PO SCH ×4 (10:32→20:56)
[2020-08-06] MEDS: methylPREDNISolone 40MG 1ML VIAL IV SCH (13:32)
[2020-08-06 14:00] VITALS: BP 121/64
--- NOTE | 2020-08-06 14:58 | IPNPDOC ---
Date Seen The patient was seen on 08/06/20. Progress Note SUBJECTIVE: Total of 3 small bloody BMs over yesterday, per nursing less blood and more mohogany colored. Advanced to CLD today. Tolerating well. H/H improving. She denies incr shortness of breath, incr weakness, lightheadedness, blurry vision, fever, chills, nausea, vomiting, diarrhea or dysuria. OBJECTIVE: PHYSICAL EXAM: VS: Please see below GENERAL APPEARANCE: NAD, resting in bed, AAOx 3 HEENT: no scleral icterus, no JVD, EOMI, nasal cannula in place CARDIOVASCULAR: S1S2, no M/R/G LUNGS: Diminished lung sounds bilaterally, occasional rhonchi, no rales ABDOMEN: soft & not tender w palpitation, BS + in 4 quad, no organomegaly MUSCULOSKELETAL: no cyanosis, no swelling INTEGUMENT: no generalized pallor NEUROLOGICAL: cranial nerve function from 2-12 intact intact, no neuro deficits PSYCH: mood and affect appropriate LABS: Please see below MICRO: BCx NG to date Bronchial washing GS: mod WBC, no organisms Bronchial washing cx: yeast like organisms, few. Bronchial washings fungal studies: AFB neg, other studies pending PATHOLOGY: Left lung, main stem, transbronchial biopsy preliminary diagnosis: Consistent with small cell carcinoma Extensive crush artefact and tumor necrosis noted Focal acute inflammation noted Confirmatory stains (TTF-1, synaptophysin, NCAM, LCA and CD 20) are pending. Final report with results will follow IMAGING: Echocardiogram 08/04/20: pending results CT chest: Suspected left hilar mass causing obstructive collapse to the left lung with moderate left effusion and associated mediastinal adenopathy. ASSESSMENT: Patient 75 years old female with past mental history of chronic kidney diseases, diastolic CHF, hypertension, hypothyroidism was transferred from [facility] with shortness of breath. Patient was admitted to [place] with sepsis secondary to pneumonia. Patient was found to have left lower lobe pneumonia with hypoxia, patient received treatment with ceftriaxone and azithromycin initially with some improvement. However on 07/27 patient developed increased shortness of breath, CT scan was done and showed a small left-sided pleural effusion with extensive parenchymal diseases in the left lower lobe with confluent left hilar mass around 4 cm consistent with postobstructive pneumonitis. Follow-up CT on 07/30/20 showed complete opacification of the left hemithorax secondary to left hilar mass causing complete collapse to the left lung with associated pleural effusion and volume loss. Underlying mediastinal and hilar adenopathy was noted as well. 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 Levaquin started. Patient was transferred to [facility] for bronchoscopy. Case was discussed with Dr. Dixon. Also patient was found to have UTI, urine culture was positive for Trichomonas specious. Patient received a few doses with Flagyl 500 mg by mouth twice a day. Echo was done on 07/27 and showed ejection fraction of 55% with moderate pericardial effusion. PLAN: Acute GI bleed with recent history of GI bleed 2/2 to duodenal ulcer -S/p 3 bloody bowel movements over past 24 hours - decreasing in amount and frequency per nursing -BP stable on IVF, no tachycardia. H/H improved to 9.2/29.5 -Stopped heparin, ASA -EGD done on 07/29/20 during recent hospital stay in [facility] patient developed acute anemia. Results were bleeding duodenal ulcer. -Discussed case with surgery (Dr. Connors) who is not recommending anything surgical -Advanced diet to Clear liquids today, will see how she tolerates -C/w IVFs to 100 cc/hr, CBC Q8Hrs, tele, PPI BID IV, carafate PO Small cell carcinoma with mediastinal adenopathy, new diagnosis -Fiberoptic bronchoscopy with washes, brushes, biopsies, fine needle aspirate, and photos done 08/02/20: Complete obstruction of the distal left mainstem by submucosal infiltration of tumor -Pathology: see above -MRI brain ordered- patient has claustrophobia so given anxiolytic if needed -C/w solumedrol 40 mg IV daily -Per discussion with pulmonary, will consult radiation/oncology 08/07/19 to evaluate for radiation treatment. Ultimately patient will want to continue treatment in [place], [place]. 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 RA is baseline. Desaturates with breathing into 70-80's on 3-4 L NC. With rest she improves. -CT chest abve. -Sputum culture positive for Xanthonomas maltophilia from prior admission at [facility]. No positive culture here thus far. -WBC 15.7K, afebrile -C/w levofloxacin only -Will need home O2 prior arranged to discharge. -Pulmonology following Hypomagnesemia, chronic -Has been NPO for two days, now mag low due to not taking PO supplement -Mag run x 1 today -F/u AM labs, resume PO when taking full diet. Mod pericardial effusion -Reported from prior hospitalization at [facility], echo done on 07/27/20 described as moderate in size -Had repeat echocardiogram on 08/04/20- discussed results with obstetrics tech who did not see mod pericardial effusion. -Official report is pending -Denies chest pain, incr SOB Hypothyroidism -Resume levothyroxine when taking PO GI px -PPI IV BID DVT px -SCD, teds Resolved issues: Trichomonas UTI Hypotension poss 2/2 to GI bleed, decreased PO intake Acute hypokalemia DISPOSITION: PT/OT. Plan is discharge home when medically improved with follow up in her local area of [place]. VS, I&O, 24H, Fishbone Vital Signs/I&O Vital Signs Date Time Temp Pulse Resp B/P (MAP) Pulse Ox O2 Delivery O2 Flow Rate FiO2 08/06/20 09:45 3.0 08/06/20 06:00 98.3 112 16 133/64 (87) 93 Nasal Cannula I&O- Last 24 Hours up to 6 AM 08/06/20 06:00 Intake Total 2950 ml Output Total 750 ml Balance 2200 ml Laboratory Data 24H LABS Laboratory Tests 2 08/05/20 20:10: Nucleated Red Blood Cells % (auto) 0.0 08/06/20 05:42: Anion Gap 5L, Glomerular Filtration Rate > 60.0, Calcium Level 7.6L, Magnesium Level 1.6L CBC/BMP Laboratory Tests 08/05/20 20:10 08/06/20 05:42 Microbiology Microbiology 08/02/20 Acid Fast Stain - Final, Resulted 08/02/20 Mycobacterial Culture, Resulted Pending 08/02/20 Fungal Smear, Resulted Pending 08/02/20 Fungal Culture, Resulted Pending 08/02/20 Gram Stain - Final, Complete 08/02/20 Bronchial Aspirate Culture - Final, Complete Yeast Like Organism 08/01/20 Blood Culture - Final, Complete NO GROWTH AFTER 5 DAYS 08/01/20 Blood Culture - Final, Complete NO GROWTH AFTER 5 DAYS Current Medications Current Medications Medications (Trade) Dose Ordered Sig/Tato Route PRN Reason Start Time Stop Time Status Last Admin Dose Admin Acetaminophen (Tylenol Tab) 650 mg Q4H PRN PO PAIN OR FEVER 07/30/20 20:30 Albuterol Sulfate (Proventil Neb) 2.5 mg Q4HP PRN NEB SHORTNESS OF BREATH 07/31/20 02:00 Albuterol/ Ipratropium (Duoneb (Ipr 0.5mg/Alb 2.5mg)) 3 ml RQ6H NEB 07/31/20 02:00 08/06/20 11:50 Aspirin (Aspirin Chewable) 81 mg DAILY PO 07/31/20 09:00 08/04/20 08:15 DC 08/03/20 09:59 Cefepime HCl 2 gm/ Dextrose 50 ml @ 100 mls/hr Q12H IV 08/01/20 18:00 08/04/20 13:44 DC 08/04/20 05:45 Fentanyl Citrate (Sublimaze) 25 mcg Q5MP PRN IV PAIN LEVEL 5-10 08/02/20 11:45 08/02/20 12:45 DC Heparin Sodium (Porcine) (Heparin) 5,000 units Q12H SC 07/30/20 21:00 08/04/20 03:46 DC 08/03/20 20:09 Home Med (Med Rec Complete!) ASDIRECTED XX 07/30/20 21:30 07/30/20 22:04 DC Lactated Ringer's 1,000 ml @ 100 mls/hr Q10H IV 08/02/20 11:45 08/02/20 12:45 DC Levofloxacin 750 mg/IV Miscellaneous Supplies 150 ml @ 100 mls/hr Q24H IV 07/30/20 22:00 08/05/20 21:45 Levothyroxine Sodium (Synthroid) 75 mcg DAILY@0600 PO 07/31/20 06:00 08/04/20 08:26 DC 08/04/20 05:44 Magnesium Gluconate (Magnesium Gluconate) 250 mg DAILY PO 07/31/20 16:00 08/04/20 08:26 DC 08/03/20 09:59 Magnesium Oxide (Mag-Ox) 400 mg BID PO 08/03/20 09:00 08/04/20 08:01 DC 08/03/20 20:10 Magnesium Oxide (Mag-Ox) 800 mg BID PO 08/04/20 09:00 08/04/20 08:26 DC Methylprednisolone (SOLU medrol) 40 mg Q24H IV 08/04/20 14:00 08/06/20 13:32 Methylprednisolone (SOLUmedrol) 40 mg Q24H IV 08/04/20 14:00 08/04/20 14:34 DC Metoclopramide HCl (REGLAN INJection) 10 mg Q6HP PRN IV NAUSEA OR VOMITING 08/02/20 11:45 08/02/20 12:45 DC Omeprazole (PriLOSEC) 40 mg BID PO 07/31/20 09:00 08/04/20 08:26 DC 08/03/20 20:09 Ondansetron HCl (ZOFRAN INJection) 4 mg Q4HP PRN IV NAUSEA OR VOMITING 08/02/20 11:45 08/02/20 12:45 DC Pantoprazole Sodium (Protonix) 40 mg BID IV 08/04/20 09:00 08/06/20 10:32 Potassium Chloride 10 meq/ IV Miscellaneous Supplies 100 ml @ 100 mls/hr Q1H IV 08/04/20 08:30 08/04/20 11:29 DC 08/04/20 12:04 Prednisone (Deltasone) 40 mg DAILY PO 07/31/20 09:00 08/02/20 15:16 DC 08/02/20 13:24 Sodium Chloride 1,000 ml @ 100 mls/hr Q10H IV 08/04/20 00:00 08/04/20 13:27 DC 08/04/20 00:07 Sodium Chloride 1,000 ml @ 100 mls/hr Q10H IV 08/04/20 13:30 08/06/20 12:29 Sucralfate (Carafate Suspension) 1 gm ACHS PO 08/04/20 12:00 08/06/20 13:32 Sucralfate (Carafate) 1 gm BID@0800,1800 PO 07/31/20 08:00 08/04/20 10:10 DC 08/04/20 09:46 Allergies Coded Allergies: No Known Allergies (Verified Allergy, Unknown, 07/30/20) Nevaeh Sweeney MD Aug 06, 2020 14:58
[2020-08-06] MEDS ORDERED: LORazepam 1 MG TAB PO ONE (15:15)
[2020-08-06] MEDS: LevoFLOXacin IV 750 MG in IV 1 EA IV SCH (21:00)
[2020-08-06 22:00] VITALS: BP 129/74
[2020-08-07] MEDS: IPRATROPIUM 0.5MG/ALBUTEROL 2.5MG INH SOL UD 3ML (DUONEB) NEB SCH ×4 (01:29→19:01)
[2020-08-07 06:00] VITALS: BP 121/66
[2020-08-07 06:38] LABS: HEMATOCRIT 26.2 % (36.0-47.0); HEMOGLOBIN 8.1 g/dl (12.0-15.5); MEAN CORPUSCULAR HEMOGLOBIN 30.1 pg (27.0-33.0); MEAN CORPUSCULAR HGB CONC 30.9 g/dl (32.0-36.5); MEAN CORPUSCULAR VOLUME 97.4 fl (80.0-96.0); PLATELET COUNT, AUTOMATED 353 10^3/uL (150-450); RED BLOOD COUNT 2.69 10^6/uL (4.00-5.40); WHITE BLOOD COUNT 12.3 10^3/uL (4.0-10.0)
[2020-08-07 06:58] LABS: BLOOD UREA NITROGEN 3 MG/DL (7-18); CALCIUM LEVEL 7.4 MG/DL (8.8-10.2); CARBON DIOXIDE LEVEL 29 MEQ/L (21-32); CHLORIDE LEVEL 107 MEQ/L (98-107); CREATININE FOR GFR 0.44 MG/DL (0.55-1.30); GLOMERULAR FILTRATION RATE > 60.0 (>39); GLUCOSE, FASTING 91 MG/DL (70-100); MAGNESIUM LEVEL 1.7 MG/DL (1.8-2.4); POTASSIUM SERUM 3.2 MEQ/L (3.5-5.1); SODIUM LEVEL 139 MEQ/L (136-145)
[2020-08-07] MEDS ORDERED: MAG SULF 1GM/100ML (MAG RUN) 1 GM in IV 1 EA IV ONE (08:00)
[2020-08-07] MEDS: SUCRALFATE SUSP 1GM/10ML UD PO SCH ×4 (08:27→20:32)
[2020-08-07] MEDS: PANTOPRAZOLE 40MG VIAL (C9113 PER 1) IV SCH ×2 (08:27→20:32)
[2020-08-07] MEDS ORDERED: LORazepam 1 MG TAB PO ONE (09:00)
[2020-08-07] MEDS ORDERED: PROHANCE 279.3MG/ML 5ML VIAL As Ordered ONE (10:36)
--- NOTE | 2020-08-07 11:34 | RADONC.CN ---
Radiation Oncology Hx/Consult Radiation Oncology Consult Date of Service: Aug 07, 2020 Pt Identifier Savannah Rodas is a 75 year old female current smoker with a new diagnosis of SCLC of the left lung obstructing the left mainstem bronchus. In addition she remains hospitalized with a bleeding duodenal ulcer, which is being managed medically. She is seen today at the request of the hospitalist service for consideration of radiation to her obstructing left lung mass. Diagnosis/Treatment History Oncologic History Smoker for >50 pack years Had minimal JOSEPH until last month (June-July 2020), SOB progressively worsened which prompted her to present to [facility] for evaluation (she lives 3 blocks from the hospital), she was originally treated for pneumonia but on 07/27/20 due to increased SOB she had a CT which showed occlusion of the left mainstem. She was transferred to [facility] for bronchoscopy. This was done on 08/02/20 with pathology showing SCLC. She had a CT chest here which showed complete occlusion of the left mainstem and mediastinal adenopathy. She is having MRI head on 08/07/20. Interval History Seen at bedside, anxious about MRI head. Has SOB, on 3L NC O2. No chest pain or hemoptysis. States she has smoked most of her entire life. Has desire to quit now. No abdominal or skeletal pain. Endorses decreased appetite. Would like treatment in [place] Past Medical History: HTN HPL Hypothyroidism Past Surgical History: As above Family History: Non-contributory Social History: 50+ pack year smoker, quit this admission Does not drink Allergies / Meds Allergies: Coded Allergies: No Known Allergies (Verified Allergy, Unknown, 07/30/20) Home Meds Reported Medications Vitamin B Complex/Folic Acid (B-Complex Tablet) 0.4 Mg Tablet, 1 TAB PO DAILY, TAB 07/30/20 Aspirin (Aspirin) 81 Mg Tab.chew, 81 MG PO DAILY 07/30/20 Levothyroxine Sodium (LEVOTHYROXINE SODIUM) 75 Mcg Tablet, 75 MCG PO QAM 07/30/20 Review of Systems Constitutional: Denies: Chills, Fever, Weakness Eyes: Denies: Pain HEENT: Denies: Head Aches Pulmonary: Reports: Dyspnea, Cough Cardiovascular: Denies: Chest Pain, Palpitations Gastrointestinal: Reports: Melena; Denies: Nausea, Vomiting, Abdominal Pain Genitourinary: Reports: Dysuria; Denies: Hematuria Hematologic: Reports: Bruising Endocrine: Denies: Polydipsia Musculoskeletal: Denies: Neck pain, Back pain Neurological: Denies: Weakness, Numbness, Change in Speech Psych: Reports: Mood Normal Vital Signs Vital Signs Date Time Temp Pulse Resp B/P (MAP) Pulse Ox O2 Delivery O2 Flow Rate FiO2 08/07/20 06:00 97.7 79 16 121/66 (84) 91 Nasal Cannula 3.0 General Exam: Positive: Alert, Cooperative, No Acute Distress Eye Exam: Positive: PERRLA, EOMI ENT EXAM: Positive: Mucous membr. moist/pink, Pharynx Normal Neck Exam: Negative: Thyromegaly, Lymphadenopathy Chest Exam: Negative: Normal air movement (Left sided breath sounds absent. Clear on right, normal air movement) Heart Exam: Positive: Rate Normal, Regular Rhythm Abdomen Exam: Positive: Soft; Negative: Tenderness, Mass Extremity Exam: Negative: Edema, Tenderness Skin Exam: Positive: Nl turgor and temperature; Negative: Rash Neuro Exam: Positive: Normal Gait, Normal Speech, Cranial Nerves 3-12 NL Psych Exam: Positive: Mental status NL, Mood NL, Memory Intact Diagnostic and Laboratory Diagnostic Review Radiologic images, relevant labs and pathology reports were personally reviewed and discussed with Ms. Rodas. Laboratory Tests 08/05/20 12:02 08/05/20 20:10 08/06/20 05:42 08/07/20 05:56 Laboratory Tests 08/05/20 12:02: White Blood Count 15.8H, Red Blood Count 2.79L, Hemoglobin 8.5L, Hematocrit 27. 2L, Mean Corpuscular Volume 97.5H, Mean Corpuscular Hemoglobin 30.5, Mean Corpuscular Hemoglobin Concent 31.3L, Red Cell Distribution Width 16.0H, Platelet Count 423, Nucleated Red Blood Cells % (auto) 0.0 08/05/20 20:10: White Blood Count 15.7H, Red Blood Count 3.00L, Hemoglobin 9.2L, Hematocrit 29.5L, Mean Corpuscular Volume 98.3H, Mean Corpuscular Hemoglobin 30.7, Mean Corpuscular Hemoglobin Concent 31.2L, Red Cell Distribution Width 16.3H, Platelet Count 426, Nucleated Red Blood Cells % (auto) 0.0 08/06/20 05:42: Sodium Level 139, Potassium Level 3.7, Chloride Level 107, Carbon Dioxide Level 27, Anion Gap 5L, Blood Urea Nitrogen 5L, Creatinine 0.66, Glomerular Filtration Rate > 60.0, Fasting Glucose 83, Calcium Level 7.6L, Magnesium Level 1.6L 08/07/20 05:56: White Blood Count 12.3H, Red Blood Count 2.69L, Hemoglobin 8.1L, Hematocrit 26.2L, Mean Corpuscular Volume 97.4H, Mean Corpuscular Hemoglobin 30.1, Mean Corpuscular Hemoglobin Concent 30.9L, Red Cell Distribution Width 16.3H, Platelet Count 353, Nucleated Red Blood Cells % (auto) 0.0, Sodium Level 139, Potassium Level 3.2L, Chloride Level 107, Carbon Dioxide Level 29, Anion Gap 3L, Blood Urea Nitrogen 3L, Creatinine 0.44L, Glomerular Filtration Rate > 60.0, Fasting Glucose 91, Calcium Level 7.4L, Magnesium Level 1.7L Assessment and Plan Impression Ms. 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 In addition she remains hospitalized with a bleeding duodenal ulcer, which is being managed medically. She is seen today at the request of the hospitalist service for consideration of radiation to her obstructing left lung mass. Stage SCLC staging incomplete at least T3N2 Performance Status ECOG 2 Plan We had an extensive discussion with Ms. Rodas regarding the diagnosis at hand and available therapeutic options. She has an obstructing mass in the left lung. She also has mediastinal adenopathy and what looks like a small pericardial effusion and large pleural effusion, the nature of which are unknown. She is having MRI head today. She should have abdominal imaging to complete staging. I suggest a CT abdomen and pelvis (assuming there is not an outside study, which I am unaware of). I do not think she needs emergent radiation therapy. She is saturating well on 3L NC she has no hemoptysis or chest pain. Moreover, she has not been completely staged and she has not been assessed for systemic therapy candidacy which is the mainstay of treatment for SCLC. If she is proven to be limited stage and her GI bleed resolves, she may be appropriate for concurrent chemoradiation. If she has extensive stage, then the impetus to delay chest RT in favor of a multimodality approach would be less. Complicating matters is that the patient desires treatment in [place], where she lives. At this juncture she and I agreed to await the results of her staging studies prior to deciding on whether or not to proceed with some treatment here, or to facilitate outpatient follow up in [place]. I am away on 08/08/20 and will see her again on 08/09/20 for final recommendations. We instructed the patient that if there were any questions,concerns or changes in clinical status in the interim to contact us. Recommendations Complete staging: Agree with MRI head as ordered also recommend obtaining CT abdomen pelvis while inpatient No emergent RT indicated Will follow up on 08/09/20 after imaging for final recommendations MARÍA EVERETT MD Aug 07, 2020 11:34
[2020-08-07] MEDS: NS 1,000 ML IV SCH (11:44)
[2020-08-07] MEDS: KCL 10MEQ/100ML SWI (KRUN) 10 MEQ in IV 1 EA IV SCH ×4 (11:45→15:08)
--- NOTE | 2020-08-07 12:17 | REP ---
INDICATION: r/o brain metastasis. COMPARISON: None. TECHNIQUE: Axial and sagittal imaging planes are utilized for T1 and T2-weighted scans. Sequences include spin-echo, fast spin echo, FLAIR, and diffusion weighted sequences. Gadolinium enhancement dose is 10 mL of intravenous ProHance. Post gadolinium enhanced imaging is included. FINDINGS: No bony calvarial lesion is seen. Craniocervical junction and upper cervical cord are normal in appearance. There is no MR evidence of significant paranasal sinus disease. No intraorbital abnormality is seen. The lateral, third, and fourth ventricles are normal in size and position. Monterroso-white differentiation pattern is intact above and below the tentorium. There is no evidence of intracranial hemorrhage. No mass, infarction, extra-axial fluid collection or midline shift is seen. No abnormal white matter lesion is seen. There is mild motion artifact on several sequences. Small-vessel atherosclerotic changes are noted in the periventricular and subcortical white matter. Postcontrast MR images show enhancement in normal vasculature. No abnormal intracranial contrast enhancement is seen. IMPRESSION: Negative noncontrast brain MRI study. No evidence of intracranial metastasis. Mild small vessel changes. No acute intracranial abnormality. <Electronically signed by Beck Baker > 08/07/20 [id number]
[2020-08-07 14:00] VITALS: BP 122/77
[2020-08-07] MEDS: methylPREDNISolone 40MG 1ML VIAL IV SCH (14:08)
--- NOTE | 2020-08-07 17:18 | IPNPDOC ---
Date Seen The patient was seen on 08/07/20. Progress Note SUBJECTIVE: 3 stools over the day, one which was danni colored and the other 2 were dark green. Rad/onc (Dr. Varela) came to see patient today, please f/u official note on decisions made for treatment. Needed ativan to go for MRI brain today and was still groggy after so PO intake of CLD has not been great. Neg MRI brain. Will likely need CT abd/pelvis with contrast. H/H lower than 08/06/20. She denies incr shortness of breath, incr weakness, lightheadedness, blurry vision, fever, chills, nausea, vomiting, diarrhea or dysuria. OBJECTIVE: PHYSICAL EXAM: VS: Please see below GENERAL APPEARANCE: NAD, resting in bed, AAOx 3 HEENT: no scleral icterus, no JVD, EOMI, nasal cannula in place CARDIOVASCULAR: S1S2, no M/R/G LUNGS: Diminished lung sounds bilaterally, occasional rhonchi, no rales ABDOMEN: soft & not tender w palpitation, BS + in 4 quad, no organomegaly MUSCULOSKELETAL: no cyanosis, no swelling INTEGUMENT: no generalized pallor NEUROLOGICAL: cranial nerve function from 2-12 intact intact, no neuro deficits PSYCH: mood and affect appropriate LABS: Please see below MICRO: BCx NG to date Bronchial washing GS: mod WBC, no organisms Bronchial washing cx: yeast like organisms, few. Bronchial washings fungal studies: AFB neg, other studies pending PATHOLOGY: Left lung, main stem, transbronchial biopsy preliminary diagnosis: Consistent with small cell carcinoma Extensive crush artefact and tumor necrosis noted Focal acute inflammation noted Confirmatory stains (TTF-1, synaptophysin, NCAM, LCA and CD 20) are pending. Final report with results will follow IMAGING: Echocardiogram 08/04/20: pending results CT chest: Suspected left hilar mass causing obstructive collapse to the left lung with moderate left effusion and associated mediastinal adenopathy. ASSESSMENT: Patient 75 years old female with past mental history of chronic kidney diseases, diastolic CHF, hypertension, hypothyroidism was transferred from [facility] with shortness of breath. Patient was admitted to [place] with sepsis secondary to pneumonia. Patient was found to have left lower lobe pneumonia with hypoxia, patient received treatment with ceftriaxone and azithromycin initially with some improvement. However on 07/27 patient developed increased shortness of breath, CT scan was done and showed a small left-sided pleural effusion with extensive parenchymal diseases in the left lower lobe with confluent left hilar mass around 4 cm consistent with postobstructive pneumonitis. Follow-up CT on 07/30/20 showed complete opacification of the left hemithorax secondary to left hilar mass causing complete collapse to the left lung with associated pleural effusion and volume loss. Underlying mediastinal and hilar adenopathy was noted as well. 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 Levaquin started. Patient was transferred to [facility] for bronchoscopy. Case was discussed with Dr. Dixon. Also patient was found to have UTI, urine culture was positive for Trichomonas specious. Patient received a few doses with Flagyl 500 mg by mouth twice a day. Echo was done on 07/27 and showed ejection fraction of 55% with moderate pericardial effusion. PLAN: Acute GI bleed with recent history of GI bleed 2/2 to duodenal ulcer -S/p 3 bowel movements today (one mohagany colored) others normal. Total of 5 mildly bloody on 08/06/20 -BP stable on IVF, no tachycardia. H/H lower today -Tolerating CLD find -EGD done on 07/29/20 during recent hospital stay in [facility] patient developed acute anemia. Results were bleeding duodenal ulcer. -Discussed case with surgery (Dr. Connors) who is not recommending anything surgical -C/w IVFs to 85 cc/hr, CBC Q8Hrs, tele, PPI BID IV, carafate PO -Keep on CLD and if feel appropriate, can advance further on 08/08/20 to diet and pills -Stopped heparin, ASA Small cell carcinoma with mediastinal adenopathy, new diagnosis -Fiberoptic bronchoscopy with washes, brushes, biopsies, fine needle aspirate, and photos done 08/02/20: Complete obstruction of the distal left mainstem by submucosal infiltration of tumor -Pathology: see above -Needed ativan to under MRI brain: Neg. 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 RA is baseline. Desaturates with breathing into 70-80's on 3-4 L NC. With rest she improves. -CT chest abve. -Sputum culture positive for Xanthonomas maltophilia from prior admission at [facility]. No positive culture here thus far. -WBC 12.3K, afebrile -C/w levofloxacin PO -Will need home O2 prior arranged to discharge. -Pulmonology following Hypomagnesemia, chronic -Has been CLD only -Mag run x 1 today -F/u AM labs, resume pills when taking full diet. Hypokalemia, acute -S/p KCl 10 mEq x 4 -F/u AM labs Mod pericardial effusion -Reported from prior hospitalization at [facility], echo done on 07/27/20 described as moderate in size -Had repeat echocardiogram on 08/04/20- discussed results with quality technician fiberglass who did not see mod pericardial effusion. -Official report is pending -Denies chest pain, incr SOB Hypothyroidism -Resume levothyroxine when taking pills GI px -PPI IV BID DVT px -SCD, teds Resolved issues: Trichomonas UTI Hypotension poss 2/2 to GI bleed, decreased PO intake Acute hypokalemia DISPOSITION: F/u PT/OT suggestions. Plan is discharge home when medically improved with follow up in her local area of [place]. VS, I&O, 24H, Shireen Vital Signs/I&O Vital Signs Date Time Temp Pulse Resp B/P (MAP) Pulse Ox O2 Delivery O2 Flow Rate FiO2 08/07/20 14:00 97.8 96 16 122/77 (92) 94 Nasal Cannula 3.0 I&O- Last 24 Hours up to 6 AM 08/07/20 06:00 Intake Total 2170 ml Output Total 1350 ml Balance 820 ml Laboratory Data 24H LABS Laboratory Tests 2 08/07/20 05:56: Nucleated Red Blood Cells % (auto) 0.0, Anion Gap 3L, Glomerular Filtration Rate > 60.0, Calcium Level 7.4L, Magnesium Level 1.7L CBC/BMP Laboratory Tests 08/07/20 05:56 Microbiology Microbiology 08/02/20 Acid Fast Stain - Final, Resulted 08/02/20 Mycobacterial Culture, Resulted Pending 08/02/20 Fungal Smear, Resulted Pending 08/02/20 Fungal Culture, Resulted Pending 08/02/20 Gram Stain - Final, Complete 08/02/20 Bronchial Aspirate Culture - Final, Complete Yeast Like Organism 08/01/20 Blood Culture - Final, Complete NO GROWTH AFTER 5 DAYS 08/01/20 Blood Culture - Final, Complete NO GROWTH AFTER 5 DAYS Current Medications Current Medications Medications (Trade) Dose Ordered Sig/Tato Route PRN Reason Start Time Stop Time Status Last Admin Dose Admin Acetaminophen (Tylenol Tab) 650 mg Q4H PRN PO PAIN OR FEVER 07/30/20 20:30 Albuterol Sulfate (Proventil Neb) 2.5 mg Q4HP PRN NEB SHORTNESS OF BREATH 07/31/20 02:00 Albuterol/ Ipratropium (Duoneb (Ipr 0.5mg/Alb 2.5mg)) 3 ml RQ6H NEB 07/31/20 02:00 08/07/20 14:26 Aspirin (Aspirin Chewable) 81 mg DAILY PO 07/31/20 09:00 08/04/20 08:15 DC 08/03/20 09:59 Cefepime HCl 2 gm/ Dextrose 50 ml @ 100 mls/hr Q12H IV 08/01/20 18:00 08/04/20 13:44 DC 08/04/20 05:45 Fentanyl Citrate (Sublimaze) 25 mcg Q5MP PRN IV PAIN LEVEL 5-10 08/02/20 11:45 08/02/20 12:45 DC Heparin Sodium (Porcine) (Heparin) 5,000 units Q12H SC 07/30/20 21:00 08/04/20 03:46 DC 08/03/20 20:09 Home Med (Med Rec Complete!) ASDIRECTED XX 07/30/20 21:30 07/30/20 22:04 DC Lactated Ringer's 1,000 ml @ 100 mls/hr Q10H IV 08/02/20 11:45 08/02/20 12:45 DC Levofloxacin 750 mg/IV Miscellaneous Supplies 150 ml @ 100 mls/hr Q24H IV 07/30/20 22:00 08/06/20 21:00 Levothyroxine Sodium (Synthroid) 75 mcg DAILY@0600 PO 07/31/20 06:00 08/04/20 08:26 DC 08/04/20 05:44 Magnesium Gluconate (Magnesium Gluconate) 250 mg DAILY PO 07/31/20 16:00 08/04/20 08:26 DC 08/03/20 09:59 Magnesium Oxide (Mag-Ox) 400 mg BID PO 08/03/20 09:00 08/04/20 08:01 DC 08/03/20 20:10 Magnesium Oxide (Mag-Ox) 800 mg BID PO 08/04/20 09:00 08/04/20 08:26 DC Methylprednisolone (SOLU medrol) 40 mg Q24H IV 08/04/20 14:00 08/07/20 14:08 Methylprednisolone (SOLUmedrol) 40 mg Q24H IV 08/04/20 14:00 08/04/20 14:34 DC Metoclopramide HCl (REGLAN INJection) 10 mg Q6HP PRN IV NAUSEA OR VOMITING 08/02/20 11:45 08/02/20 12:45 DC Omeprazole (PriLOSEC) 40 mg BID PO 07/31/20 09:00 08/04/20 08:26 DC 08/03/20 20:09 Ondansetron HCl (ZOFRAN INJection) 4 mg Q4HP PRN IV NAUSEA OR VOMITING 08/02/20 11:45 08/02/20 12:45 DC Pantoprazole Sodium (Protonix) 40 mg BID IV 08/04/20 09:00 08/07/20 08:27 Potassium Chloride 10 meq/ IV Miscellaneous Supplies 100 ml @ 100 mls/hr Q1H IV 08/04/20 08:30 08/04/20 11:29 DC 08/04/20 12:04 Potassium Chloride 10 meq/ IV Miscellaneous Supplies 100 ml @ 100 mls/hr Q1H IV 08/07/20 09:00 08/07/20 12:59 DC 08/07/20 15:08 Prednisone (Deltasone) 40 mg DAILY PO 07/31/20 09:00 08/02/20 15:16 DC 08/02/20 13:24 Sodium Chloride 1,000 ml @ 100 mls/hr Q10H IV 08/04/20 00:00 08/04/20 13:27 DC 08/04/20 00:07 Sodium Chloride 1,000 ml @ 100 mls/hr Q10H IV 08/04/20 13:30 08/07/20 11:44 Sucralfate (Carafate Suspension) 1 gm ACHS PO 08/04/20 12:00 08/07/20 16:38 Sucralfate (Carafate) 1 gm BID@0800,1800 PO 07/31/20 08:00 08/04/20 10:10 DC 08/04/20 09:46 Allergies Coded Allergies: No Known Allergies (Verified Allergy, Unknown, 07/30/20) Nevaeh Sweeney MD Aug 07, 2020 17:18
[2020-08-07] MEDS: LevoFLOXacin IV 750 MG in IV 1 EA IV SCH (21:00)
[2020-08-07 22:00] VITALS: BP 114/75
[2020-08-08] MEDS: IPRATROPIUM 0.5MG/ALBUTEROL 2.5MG INH SOL UD 3ML (DUONEB) NEB SCH ×4 (02:00→19:50)
[2020-08-08] MEDS: NS 1,000 ML IV SCH ×3 (03:41→16:12)
[2020-08-08 06:00] VITALS: BP 116/75
[2020-08-08] MEDS: GASTROGRAFIN SOLUTION 30ML PO SCH ×2 (06:12→07:30)
[2020-08-08 06:22] LABS: HEMATOCRIT 29.4 % (36.0-47.0); HEMOGLOBIN 9.3 g/dl (12.0-15.5); MEAN CORPUSCULAR HEMOGLOBIN 31.1 pg (27.0-33.0); MEAN CORPUSCULAR HGB CONC 31.6 g/dl (32.0-36.5); MEAN CORPUSCULAR VOLUME 98.3 fl (80.0-96.0); PLATELET COUNT, AUTOMATED 357 10^3/uL (150-450); RED BLOOD COUNT 2.99 10^6/uL (4.00-5.40); WHITE BLOOD COUNT 14.2 10^3/uL (4.0-10.0)
[2020-08-08 07:10] LABS: ALBUMIN 1.8 GM/DL (3.2-5.2); ALT/SGPT 55 U/L (12-78); BILIRUBIN,TOTAL 0.2 MG/DL (0.2-1.0); BLOOD UREA NITROGEN 2 MG/DL (7-18); CALCIUM LEVEL 7.8 MG/DL (8.8-10.2); CARBON DIOXIDE LEVEL 26 MEQ/L (21-32); CHLORIDE LEVEL 107 MEQ/L (98-107); CREATININE FOR GFR 0.57 MG/DL (0.55-1.30); GLOMERULAR FILTRATION RATE > 60.0 (>39); GLUCOSE, FASTING 83 MG/DL (70-100); POTASSIUM SERUM 3.5 MEQ/L (3.5-5.1); SODIUM LEVEL 138 MEQ/L (136-145)
[2020-08-08 08:17] LABS: MAGNESIUM LEVEL 1.9 MG/DL (1.8-2.4)
[2020-08-08] MEDS: PANTOPRAZOLE 40MG VIAL (C9113 PER 1) IV SCH ×2 (08:23→22:12)
[2020-08-08] MEDS ORDERED: ISOVUE-370 76% 100ML VIAL As Ordered ONE (08:46)
--- NOTE | 2020-08-08 09:13 | REP ---
INDICATION: r/o metastasis of lung cancer COMPARISON: None TECHNIQUE: Axial contrast-enhanced images of the abdomen with coronal and sagittal reformations using 100 cc Isovue 370 intravenous contrast material. Delayed images of the abdomen obtained. This CT examination was performed using the following dose reduction techniques: Automated exposure control, adjustment of mA and/or kv according to the patient's size, and use of iterative reconstruction technique. FINDINGS: Visualized lung bases demonstrate suspected left hilar mass and postobstructive collapse to the left lower lobe along with moderate bilateral pleural effusions. The liver demonstrates innumerable metastatic lesions. Spleen, pancreas, gallbladder, and bilateral adrenal glands are normal. Kidneys demonstrate age-related atrophic changes and suspected elements of cortical scarring. Visualized portions of the small and large bowel are grossly unremarkable. No significant ascites. No obvious intraperitoneal or retroperitoneal adenopathy. Atherosclerotic changes to the aorta and vasculature noted without aneurysm. Musculoskeletal structures demonstrate degenerative changes without focal osseous abnormality. IMPRESSION: 1. Diffuse hepatic metastases. 2. Lung bases demonstrate moderate pleural effusions, left hilar mass and associated postobstructive collapse to the left lower lobe. <Electronically signed by Roman Gilman > 08/08/20 [id number]
[2020-08-08] MEDS: SUCRALFATE SUSP 1GM/10ML UD PO SCH ×5 (09:34→22:17)
[2020-08-08 13:25] VITALS: BP 118/69
[2020-08-08] MEDS: methylPREDNISolone 40MG 1ML VIAL IV SCH (14:30)
[2020-08-08 22:00] VITALS: BP 116/68
[2020-08-08] MEDS: LevoFLOXacin IV 750 MG in IV 1 EA IV SCH (22:12)
[2020-08-09] MEDS: IPRATROPIUM 0.5MG/ALBUTEROL 2.5MG INH SOL UD 3ML (DUONEB) NEB SCH ×4 (02:00→18:33)
[2020-08-09] MEDS: NS 1,000 ML IV SCH (05:39)
[2020-08-09 06:00] VITALS: BP 114/68
[2020-08-09 06:11] LABS: HEMATOCRIT 31.8 % (36.0-47.0); HEMOGLOBIN 9.7 g/dl (12.0-15.5); MEAN CORPUSCULAR HEMOGLOBIN 30.5 pg (27.0-33.0); MEAN CORPUSCULAR HGB CONC 30.5 g/dl (32.0-36.5); PLATELET COUNT, AUTOMATED 324 10^3/uL (150-450); RED BLOOD COUNT 3.18 10^6/uL (4.00-5.40); WHITE BLOOD COUNT 13.7 10^3/uL (4.0-10.0)
[2020-08-09 06:53] LABS: ALBUMIN 1.9 GM/DL (3.2-5.2); ALT/SGPT 71 U/L (12-78); BILIRUBIN,TOTAL 0.4 MG/DL (0.2-1.0); BLOOD UREA NITROGEN 2 MG/DL (7-18); CALCIUM LEVEL 7.9 MG/DL (8.8-10.2); CARBON DIOXIDE LEVEL 25 MEQ/L (21-32); CHLORIDE LEVEL 106 MEQ/L (98-107); CREATININE FOR GFR 0.65 MG/DL (0.55-1.30); GLOMERULAR FILTRATION RATE > 60.0 (>39); GLUCOSE, FASTING 84 MG/DL (70-100); POTASSIUM SERUM 3.6 MEQ/L (3.5-5.1); SODIUM LEVEL 135 MEQ/L (136-145)
--- NOTE | 2020-08-09 07:33 | IPNPDOC ---
Text Note Date of Service The patient was seen on 08/08/20. NOTE SUBJECTIVE: Patient seen and examined at bedside. No acute overnight events reported. Patient has no new medical complaints this morning. OBJECTIVE: GENERAL APPEARANCE: NAD, resting in bed, AAOx 3 HEENT: no scleral icterus, no JVD, EOMI, nasal cannula in place CARDIOVASCULAR: S1S2, no M/R/G LUNGS: Diminished lung sounds bilaterally, occasional rhonchi, no rales ABDOMEN: soft & not tender w palpitation, BS + in 4 quad, no organomegaly MUSCULOSKELETAL: no cyanosis, no swelling INTEGUMENT: no generalized pallor NEUROLOGICAL: cranial nerve function from 2-12 intact intact, no neuro deficits PSYCH: mood and affect appropriate ASSESSMENT: Patient 75 years old female with past mental history of chronic kidney diseases, diastolic CHF, hypertension, hypothyroidism was transferred from [facility] with shortness of breath. Patient was admitted to [place] with sepsis secondary to pneumonia. Patient was found to have left lower lobe pneumonia with hypoxia, patient received treatment with ceftriaxone and azithromycin initially with some improvement. However on 07/27 patient developed increased shortness of breath, CT scan was done and showed a small left-sided pleural effusion with extensive parenchymal diseases in the left lower lobe with confluent left hilar mass around 4 cm consistent with postobstructive pneumonitis. Follow-up CT on 07/30/20 showed complete opacification of the left hemithorax secondary to left hilar mass causing complete collapse to the left lung with associated pleural effusion and volume loss. Underlying mediastinal and hilar adenopathy was noted as well. 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 Levaquin started. Patient was transferred to [facility] for bronchoscopy. Case was discussed with Dr. Dixon. Also patient was found to have UTI, urine culture was positive for Trichomonas specious. Patient received a few doses with Flagyl 500 mg by mouth twice a day. Echo was done on 07/27 and showed ejection fraction of 55% with moderate pericardial effusion. PLAN: #Acute GI bleed with recent history of GI bleed 2/2 to duodenal ulcer - hemodynamically stable -Tolerating CLD -EGD done on 07/29/20 during recent hospital stay in [facility] patient developed acute anemia. Results were bleeding duodenal ulcer. -Discussed case with surgery (Dr. Connors) who is not recommending anything surgical -C/w IVFs to 85 cc/hr, CBC Q8Hrs, tele, PPI BID IV, carafate PO -likely advance diet - transition to PO Rx -Stopped heparin, ASA #Small cell carcinoma with mediastinal adenopathy, new diagnosis -Fiberoptic bronchoscopy with washes, brushes, biopsies, fine needle aspirate, and photos done 08/02/20: Complete obstruction of the distal left mainstem by submucosal infiltration of tumor -Pathology: see above -Needed ativan to under MRI brain: Neg. 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 RA is baseline. Desaturates with breathing into 70-80's on 3-4 L NC. With rest she improves. -CT chest abve. -Sputum culture positive for Xanthonomas maltophilia from prior admission at [facility]. No positive culture here thus far. -WBC 12.3K, afebrile -C/w levofloxacin PO -Will need home O2 prior arranged to discharge. -Pulmonology following #Hypomagnesemia, chronic -Has been CLD only -Mag run x 1 today -F/u AM labs, resume pills when taking full diet. #Hypokalemia, acute -S/p KCl 10 mEq x 4 -F/u AM labs #Mod pericardial effusion -Reported from prior hospitalization at [facility], echo done on 07/27/20 described as moderate in size -Had repeat echocardiogram on 08/04/20- discussed results with public health technologist who did not see mod pericardial effusion. -Official report is pending -Denies chest pain, incr SOB #Hypothyroidism -Resume levothyroxine when taking pills #GI px -PPI IV BID #DVT px -SCD, teds DISPOSITION: plan for discharge to rehab in [place], advance diet, transition to PO Rx VS,Fishbone, I+O VS, Fishbone, I+O Laboratory Tests 08/09/20 05:48 Vital Signs Date Time Temp Pulse Resp B/P (MAP) Pulse Ox O2 Delivery O2 Flow Rate FiO2 08/09/20 07:20 Nasal Cannula 3.0 08/08/20 22:00 98.6 94 20 116/68 (63) 93 I&O- Last 24 Hours up to 6 AM 08/09/20 05:59 Intake Total 1960 ml Output Total 1400 ml Balance 560 ml MARLIN LOPEZ MD Aug 09, 2020 07:33
[2020-08-09] MEDS: predniSONE 20 MG TAB PO SCH (08:04)
[2020-08-09] MEDS: PANTOPRAZOLE 40MG TAB (PROTONIX) PO SCH ×2 (08:05→20:44)
[2020-08-09] MEDS: SUCRALFATE SUSP 1GM/10ML UD PO SCH ×4 (08:05→20:45)
--- NOTE | 2020-08-09 09:01 | RADENCPD ---
Date/Time of Encounter Date of Encounter: Aug 09, 2020 Time of Encounter: 08:52 Encounter Met with patient at bedside, she states she is breathing better today. Comfortable on 3L NC. No CP. No abdominal pain. I reviewed her scan results and she is extensive stage (metastatic) I explained that the mainstay of treatment for ES SCLC is chemotherapy and that she would possibly benefit from palliative RT to the left lung mass. I offered to facilitate this here. She politely declined. She prefers to pursue cancer treatments at [facility] closer to home. This is reasonable as her current pulmonary status is stable, and she is not suffering from hemoptysis, or pain from her mass. I did not broach prognosis other than to say this this is not a curable disease. I spoke with the medicine team and her disposition plan is to rehab in [place] in the next 1-2 days. I have been in contact with my colleague Dr. Mota in [place] who would be happy to see her as an outpatient post discharge and discuss palliative RT. I will ensure a formal referral is placed and records including imaging are sent. I will also send referral to medical oncology in [place] with whom Dr. Mota works closely. Hopefully she will make a meaningful functional recovery in rehab and be able undergo chemotherapy. MARÍA EVERETT MD Aug 09, 2020 09:01
--- NOTE | 2020-08-09 11:41 | IPNPDOC ---
Text Note Date of Service The patient was seen on 08/08/20. NOTE SUBJECTIVE: No new medical complaints. Patient seen and examined at bedside. OBJECTIVE: GENERAL APPEARANCE: NAD, resting in bed, AAOx 3 HEENT: no scleral icterus, no JVD, EOMI, nasal cannula in place CARDIOVASCULAR: S1S2, no M/R/G LUNGS: Diminished lung sounds bilaterally, occasional rhonchi, no rales ABDOMEN: soft & not tender w palpitation, BS + in 4 quad, no organomegaly MUSCULOSKELETAL: no cyanosis, no swelling INTEGUMENT: no generalized pallor NEUROLOGICAL: cranial nerve function from 2-12 intact intact, no neuro deficits PSYCH: mood and affect appropriate LABS: Please see below ASSESSMENT: Patient 75 years old female with past mental history of chronic kidney diseases, diastolic CHF, hypertension, hypothyroidism was transferred from [facility] with shortness of breath. Patient was admitted to [place] with sepsis secondary to pneumonia. Patient was found to have left lower lobe pneumonia with hypoxia, patient received treatment with ceftriaxone and azithromycin initially with some improvement. However on 07/27 patient developed increased shortness of breath, CT scan was done and showed a small left-sided pleural effusion with extensive parenchymal diseases in the left lower lobe with confluent left hilar mass around 4 cm consistent with postobstructive pneumonitis. Follow-up CT on 07/30/20 showed complete opacification of the left hemithorax secondary to left hilar mass causing complete collapse to the left lung with associated pleural effusion and volume loss. Underlying mediastinal and hilar adenopathy was noted as well. 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 Levaquin started. Patient was transferred to [facility] for bronchoscopy. Case was discussed with Dr. Dixon. Also patient was found to have UTI, urine culture was positive for Trichomonas specious. Patient received a few doses with Flagyl 500 mg by mouth twice a day. Echo was done on 07/27 and showed ejection fraction of 55% with moderate pericardial effusion. PLAN: Acute GI bleed with recent history of GI bleed 2/2 to duodenal ulcer -S/p 3 bowel movements today (one mohagany colored) others normal. Total of 5 mildly bloody on 08/06/20 -BP stable on IVF, no tachycardia. H/H lower today -Tolerating CLD find -EGD done on 07/29/20 during recent hospital stay in [facility] patient developed acute anemia. Results were bleeding duodenal ulcer. -Discussed case with surgery (Dr. Connors) who is not recommending anything surgical -C/w IVFs to 85 cc/hr, CBC Q8Hrs, tele, PPI BID IV, carafate PO -Keep on CLD and if feel appropriate, can advance further on 08/08/20 to diet and pills -Stopped heparin, ASA Small cell carcinoma with mediastinal adenopathy, new diagnosis -Fiberoptic bronchoscopy with washes, brushes, biopsies, fine needle aspirate, and photos done 08/02/20: Complete obstruction of the distal left mainstem by submucosal infiltration of tumor -Pathology: see above -Needed ativan to under MRI brain: Neg. 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 RA is baseline. Desaturates with breathing into 70-80's on 3-4 L NC. With rest she improves. -CT chest abve. -Sputum culture positive for Xanthonomas maltophilia from prior admission at [facility]. No positive culture here thus far. -WBC 12.3K, afebrile -C/w levofloxacin PO -Will need home O2 prior arranged to discharge. -Pulmonology following Hypomagnesemia, chronic -Has been CLD only -Mag run x 1 today -F/u AM labs, resume pills when taking full diet. Hypokalemia, acute -S/p KCl 10 mEq x 4 -F/u AM labs Mod pericardial effusion -Reported from prior hospitalization at [facility], echo done on 07/27/20 described as moderate in size -Had repeat echocardiogram on 08/04/20- discussed results with shop technician who did not see mod pericardial effusion. -Official report is pending -Denies chest pain, incr SOB Hypothyroidism -Resume levothyroxine when taking pills GI px -PPI IV BID DVT px -SCD, teds DISPOSITION: F/u PT/OT suggestions. follow up rad/on. discussed with her daughter hodan on the phone. Plan is discharge home when medically improved with follow up in her local area of [place]. VS,Fishbone, I+O VS, Fishbone, I+O Laboratory Tests 08/08/20 05:41 Vital Signs Date Time Temp Pulse Resp B/P (MAP) Pulse Ox O2 Delivery O2 Flow Rate FiO2 08/08/20 06:00 98.3 100 18 116/75 (89) 92 Nasal Cannula 3.0 I&O- Last 24 Hours up to 6 AM 08/08/20 06:00 Intake Total 3200 ml Output Total 1575 ml Balance 1625 ml MARLIN LOPEZ MD Aug 08, 2020 10:57
[2020-08-09 14:00] VITALS: BP 114/68
[2020-08-09 18:17] LABS: HEMATOCRIT 29.4 % (36.0-47.0); HEMOGLOBIN 9.1 g/dl (12.0-15.5)
[2020-08-09] MEDS: LevoFLOXacin 750 MG TABLET PO SCH (20:44)
[2020-08-09 22:00] VITALS: BP 110/69
[2020-08-10] MEDS: IPRATROPIUM 0.5MG/ALBUTEROL 2.5MG INH SOL UD 3ML (DUONEB) NEB SCH ×4 (02:00→18:08)
[2020-08-10 06:00] VITALS: BP 112/63
[2020-08-10 06:29] LABS: BASO % 0.1 % (0.0-1.0); EOS % 0.1 % (0.0-3.0); HEMATOCRIT 30.1 % (36.0-47.0); HEMOGLOBIN 9.1 g/dl (12.0-15.5); LYMPH # 0.9 10^3/uL (1.5-5.0); LYMPH % 6.6 % (24.0-44.0); MEAN CORPUSCULAR HEMOGLOBIN 30.2 pg (27.0-33.0); MEAN CORPUSCULAR HGB CONC 30.2 g/dl (32.0-36.5); MONO # 0.9 10^3/uL (0.0-0.8); MONO % 6.1 % (0.0-5.0); NEUTROPHILS # 12.2 10^3/uL (1.5-8.5); NEUTROPHILS % 86.3 % (36.0-66.0); PLATELET COUNT, AUTOMATED 286 10^3/uL (150-450); RED BLOOD COUNT 3.01 10^6/uL (4.00-5.40); WHITE BLOOD COUNT 14.2 10^3/uL (4.0-10.0)
[2020-08-10 07:02] LABS: ALBUMIN 1.9 GM/DL (3.2-5.2); ALT/SGPT 89 U/L (12-78); BILIRUBIN,TOTAL 0.4 MG/DL (0.2-1.0); BLOOD UREA NITROGEN 3 MG/DL (7-18); CALCIUM LEVEL 7.9 MG/DL (8.8-10.2); CARBON DIOXIDE LEVEL 29 MEQ/L (21-32); CHLORIDE LEVEL 106 MEQ/L (98-107); CREATININE FOR GFR 0.66 MG/DL (0.55-1.30); GLOMERULAR FILTRATION RATE > 60.0 (>39); GLUCOSE, FASTING 73 MG/DL (70-100); POTASSIUM SERUM 3.2 MEQ/L (3.5-5.1); SODIUM LEVEL 138 MEQ/L (136-145); TOTAL PROTEIN 4.8 GM/DL (6.4-8.2)
[2020-08-10] MEDS: SUCRALFATE SUSP 1GM/10ML UD PO SCH ×4 (07:57→20:22)
[2020-08-10] MEDS: PANTOPRAZOLE 40MG TAB (PROTONIX) PO SCH ×2 (07:57→20:22)
[2020-08-10] MEDS: predniSONE 20 MG TAB PO SCH (07:57)
[2020-08-10] MEDS ORDERED: POTASSIUM CHLORIDE 10 MEQ SR TABLET PO ONE (09:00)
[2020-08-10 09:53] LABS: MAGNESIUM LEVEL 1.5 MG/DL (1.8-2.4)
[2020-08-10 13:18] VITALS: BP 120/76
--- NOTE | 2020-08-10 13:22 | IPNPDOC ---
Text Note Date of Service The patient was seen on 08/10/20. NOTE SUBJECTIVE: No new medical complaints. Patient seen and examined at bedside. OBJECTIVE: GENERAL APPEARANCE: NAD, resting in bed, elderly HEENT: no scleral icterus, no JVD, EOMI, nasal cannula in place CARDIOVASCULAR: S1S2, no M/R/G LUNGS: Diminished lung sounds bilaterally, occasional rhonchi, no rales ABDOMEN: soft & not tender w palpitation, BS + in 4 quad, no organomegaly PSYCH: AAOx3 LABS: Please see below ASSESSMENT: Patient 75 years old female with past mental history of chronic kidney diseases, diastolic CHF, hypertension, hypothyroidism was transferred from [facility] with shortness of breath. Patient was admitted to [facility] with sepsis secondary to pneumonia. Patient was found to have left lower lobe pneumonia with hypoxia, patient received treatment with ceftriaxone and azithromycin initially with some improvement. However on 07/27 patient developed increased shortness of breath, CT scan was done and showed a small left-sided pleural effusion with extensive parenchymal diseases in the left lower lobe with confluent left hilar mass around 4 cm consistent with postobstructive pneumonitis. Follow-up CT on 07/30/20 showed complete opacification of the left hemithorax secondary to left hilar mass causing complete collapse to the left lung with associated pleural effusion and volume loss. Underlying mediastinal and hilar adenopathy was noted as well. 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 Levaquin started. Patient was transferred to [facility] for bronchoscopy. Case was discussed with Dr. Dixon. Also patient was found to have UTI, urine culture was positive for Trichomonas specious. Patient received a few doses with Flagyl 500 mg by mouth twice a day. Echo was done on 07/27 and showed ejection f raction of 55% with moderate pericardial effusion. PLAN: #Acute GI bleed with recent history of GI bleed 2/2 to duodenal ulcer -H/H stable - on regular diet -EGD done on 07/29/20 during recent hospital stay in [facility] patient developed acute anemia. Results were bleeding duodenal ulcer. -Discussed case with surgery (Dr. Connors) who is not recommending anything surgical - transitioned to oral meds #Small cell carcinoma with mediastinal adenopathy, new diagnosis -Fiberoptic bronchoscopy with washes, brushes, biopsies, fine needle aspirate, and photos done 08/02/20: Complete obstruction of the distal left mainstem by submucosal infiltration of tumor -Pathology: see above -Needed ativan to under MRI brain: Neg. 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 RA is baseline. -CT chest abve. -Sputum culture positive for Xanthonomas maltophilia from prior admission at [facility]. -- bronchial washings here show yeast -C/w levofloxacin PO -Will need home O2 arranged prior to discharge. -Pulmonology following #Hypomagnesemia, chronic #Hypokalemia, acute -S/p KCl 10 mEq x 4 -F/u AM labs #Mod pericardial effusion -Reported from prior hospitalization at [facility], echo done on 07/27/20 described as moderate in size -Had repeat echocardiogram on 08/04/20- discussed results with environmental health technician who did not see mod pericardial effusion. -Official report is pending -Denies chest pain, incr SOB #Hypothyroidism -Resume levothyroxine when taking pills #GI px - PPI BID DVT px -SCD, teds DISPOSITION: pending discharge to [place] when bed available; needs RT for new lung CA with mets to liver VS,Fishbone, I+O VS, Fishbone, I+O Laboratory Tests 08/09/20 17:58 08/10/20 05:54 Vital Signs Date Time Temp Pulse Resp B/P (MAP) Pulse Ox O2 Delivery O2 Flow Rate FiO2 08/10/20 09:00 3.0 08/10/20 06:00 96.9 91 20 112/63 (79) 94 Nasal Cannula I&O- Last 24 Hours up to 6 AM 08/10/20 05:59 Intake Total 1430 ml Output Total 150 ml Balance 1280 ml MARLIN LOPEZ MD Aug 10, 2020 13:22
[2020-08-10] MEDS: LevoFLOXacin 750 MG TABLET PO SCH (20:22)
[2020-08-10 22:00] VITALS: BP 102/61
[2020-08-11] MEDS: IPRATROPIUM 0.5MG/ALBUTEROL 2.5MG INH SOL UD 3ML (DUONEB) NEB SCH ×2 (02:00→07:12)
[2020-08-11 06:00] VITALS: BP 110/62
[2020-08-11] MEDS: SUCRALFATE SUSP 1GM/10ML UD PO SCH ×2 (07:30→11:20)
[2020-08-11 08:11] LABS: ALBUMIN 1.9 GM/DL (3.2-5.2); ALT/SGPT 106 U/L (12-78); BILIRUBIN,TOTAL 0.4 MG/DL (0.2-1.0); BLOOD UREA NITROGEN 5 MG/DL (7-18); CALCIUM LEVEL 8.3 MG/DL (8.8-10.2); CARBON DIOXIDE LEVEL 27 MEQ/L (21-32); CHLORIDE LEVEL 108 MEQ/L (98-107); CREATININE FOR GFR 0.72 MG/DL (0.55-1.30); GLOMERULAR FILTRATION RATE > 60.0 (>39); GLUCOSE, FASTING 76 MG/DL (70-100); MAGNESIUM LEVEL 1.4 MG/DL (1.8-2.4); POTASSIUM SERUM 4.5 MEQ/L (3.5-5.1); SODIUM LEVEL 138 MEQ/L (136-145); TOTAL PROTEIN 4.6 GM/DL (6.4-8.2)
[2020-08-11] MEDS: PANTOPRAZOLE 40MG TAB (PROTONIX) PO SCH (09:48)
[2020-08-11] MEDS: predniSONE 20 MG TAB PO SCH (09:49)
[2020-08-11] MEDS ORDERED: LEVO750T13 PO (11:47)
[2020-08-11] MEDS ORDERED: PRED10TA2 PO (11:47)
--- NOTE | 2020-08-11 13:56 | DS.PDOC ---
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 HISTORY OF PRESENT ILLNESS: 75 years old female was transferred from [facility] with shortness of breath. Patient was admitted to [facility] with sepsis secondary to pneumonia. Patient was found to have left lower lobe pneumonia with hypoxia, patient received treatment with ceftriaxone and azithromycin initially with some improvement. However on 07/27 patient developed increased shortness of breath, CT scan was done and showed a small left-sided pleural effusion with extensive parenchymal diseases in the left lower lobe with confluent left hilar mass around 4 cm consistent with postobstructive pneumonitis. Follow-up CT on 07/30/20 showed complete opacification of the left hemithorax secondary to left hilar mass causing complete collapse to the left lung with associated pleural effusion and volume loss. Underlying mediastinal and hilar adenopathy was noted as well,. 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 Levaquin started. Patient was transferred to [facility] for possible bronchoscopy. Case was discussed with Dr. Dixon. Also patient was found to have UTI, urine culture was positive for Trichomonas specious. Patient received a few doses with Flagyl 500 mg by mouth twice a day. Echo was done on 07/27 and showed ejection fraction of 55% with moderate pericardial effusion. HOSPITAL COURSE: #Acute GI bleed with recent history of GI bleed 2/2 to duodenal ulcer -H/H stable - on regular diet -EGD done on 07/29/20 during recent hospital stay in [facility] patient developed acute anemia. Results were bleeding duodenal ulcer. -Discussed case with surgery (Dr. 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 RA is baseline. -Sputum culture positive for Xanthonomas maltophilia from prior admission at [facility]. -- bronchial washings here show yeast -C/w levofloxacin PO #Hypomagnesemia, chronic #Hypokalemia, acute #Mod pericardial effusion -Reported from prior hospitalization at [facility], echo done on 07/27/20 described as moderate in size -Had repeat echocardiogram on 08/04/20- discussed results with dental equipment technician who did not see mod pericardial effusion. #Hypothyroidism -Resume levothyroxine when taking pills DISCHARGE MEDICATIONS: Please see below. ALLERGIES: Please see below. PHYSICAL EXAMINATION ON DISCHARGE: VITAL SIGNS: Please see below. GENERAL APPEARANCE: NAD, resting in bed, elderly HEENT: no scleral icterus, no JVD, EOMI, nasal cannula in place CARDIOVASCULAR: S1S2, no M/R/G LUNGS: Diminished lung sounds bilaterally, occasional rhonchi, no rales ABDOMEN: soft & not tender w palpitation, BS + in 4 quad, no organomegaly PSYCH: AAOx3 LABORATORY DATA: Please see below. ACTIVITY: [As tolerated]. DISPOSITION: [facility]. DISCHARGE INSTRUCTIONS: 1. follow up with pcp in 3-5 days 2. follow up with radiation oncology in 1-3 days 3. follow up with medical oncology as directed DISCHARGE CONDITION: [Stable]. TIME SPENT ON DISCHARGE: 35 minutes. Vital Signs/I&Os Vital Signs Date Time Temp Pulse Resp B/P (MAP) Pulse Ox O2 Delivery O2 Flow Rate FiO2 08/11/20 12:24 90 Nasal Cannula 3.0 08/11/20 06:00 97.7 81 20 110/62 (78) I&O- Last 24 Hours up to 6 AM 08/11/20 06:00 Intake Total 980 ml Output Total 700 ml Balance 280 ml Laboratory Data Labs 24H Laboratory Tests 2 08/11/20 07:09: Anion Gap 3L, Glomerular Filtration Rate > 60.0, Calcium Level 8.3L, Magnesium Level 1.4L, Total Bilirubin 0.4, Aspartate Amino Transf (AST/SGOT) 155H, Alanine Aminotransferase (ALT/SGPT) 106H, Alkaline Phosphatase 349H, Total Protein 4.6L, Albumin 1.9L, Albumin/Globulin Ratio 0.7L CBC/BMP Laboratory Tests 08/11/20 07:09 Microbiology Microbiology 08/11/20 Respiratory Virus Panel (PCR) (BUDDY) - Final, Complete 08/02/20 Acid Fast Stain - Final, Resulted 08/02/20 Mycobacterial Culture, Resulted Pending 08/02/20 Fungal Smear, Resulted Pending 08/02/20 Fungal Culture, Resulted Pending 08/02/20 Gram Stain - Final, Complete 08/02/20 Bronchial Aspirate Culture - Final, Complete Yeast Like Organism 08/01/20 Blood Culture - Final, Complete NO GROWTH AFTER 5 DAYS 08/01/20 Blood Culture - Final, Complete NO GROWTH AFTER 5 DAYS Discharge Medications Scheduled Aspirin (Aspirin) 81 Mg Tab.chew, 81 MG PO DAILY, (Reported) Levofloxacin (Levofloxacin) 750 Mg Tablet, 750 MG PO QHS Levothyroxine Sodium (Levothyroxine Sodium) 75 Mcg Tablet, 75 MCG PO QAM, (Reported) Prednisone (Prednisone) 10 Mg Tablet, 10 MG PO TAPER Take 4 tabs daily x 3 days, then 3 tabs daily x 3 days, then 2 tabs daily x 3 days, then 1 tab daily x 3 days and stop Vitamin B Complex/Folic Acid (B-Complex Tablet) 0.4 Mg Tablet, 1 TAB PO DAILY, (Reported) Allergies Coded Allergies: No Known Allergies (Verified Allergy, Unknown, 07/30/20) MARLIN LOPEZ MD Aug 11, 2020 13:56
== END 2020-08-11 13:30 | DRG 166 ==
LOC: M PCU 20:13 → M MSPAV 08-03 23:05
PROVIDERS: ADMIT Family Medicine; ATTEND Internal Medicine
PROC: 0BBL8ZX Excision of Left Lung, Via Natural or Artificial Opening Endoscopic, Diagnostic (ICD-10-PCS; principal; 2020-08-02 10:15)
DX: J15.1 Pneumonia due to Pseudomonas (principal); K26.4 Chronic or unspecified duodenal ulcer with hemorrhage; N39.0 Urinary tract infection, site not specified; I31.3 Pericardial effusion (noninflammatory); C34.02 Malignant neoplasm of left main bronchus; C78.7 Secondary malignant neoplasm of liver and intrahepatic bile duct; I50.32 Chronic diastolic (congestive) heart failure; I13.0 Hypertensive heart and chronic kidney disease with heart failure and stage 1 through stage 4 chronic kidney disease, or unspecified chronic kidney disease; A59.9 Trichomoniasis, unspecified; E03.9 Hypothyroidism, unspecified; N18.9 Chronic kidney disease, unspecified; E83.42 Hypomagnesemia; E87.6 Hypokalemia; Z79.899 Other long term (current) drug therapy; Z79.82 Long term (current) use of aspirin; E78.5 Hyperlipidemia, unspecified; F17.200 Nicotine dependence, unspecified, uncomplicated